=== PATIENT | female | born 1990 | race Caucasian/White ===

== ENCOUNTER 2017-07-14 05:50 | Inpatient (IN) | payer SELFPAY ==
[2017-07-14] VITALS (11 sets, daily range): BP systolic 95–141; BP diastolic 50–84; PULSE 115–132; RESP 13–25; TEMP 97.6–99.1; O2SAT 96–100
[~2017-07-14] VITALS: Ht 170.2 cm; Wt 93.4 kg
[2017-07-14] MEDS ORDERED: SODIUM CHLOR 0.9% 1000 ML INJ 1,000 ML IV ONE ×3 (06:04→06:34)
[2017-07-14] MEDS ORDERED: ONDANSETRON HCL 4 MG/2 ML VIAL IV PUSH ONE ×2 (06:15→08:45)
[2017-07-14] MEDS ORDERED: SODIUM CHLORIDE 0.9% FLUSH 10 ML FLUSH IVF PRN (06:15)
--- NOTE | 2017-07-14 06:16 | PD ---
HPI Chief Complaint: GI Complaint Time Seen by Provider: 06:01 Travel History International Travel<30 days: No Contact w/Intl Traveler<30days: No Traveled to known affect area: No History of Present Illness HPI 26-year-old female arrives vomiting. She reports a history of diabetes insulin- dependent. Vomiting started last night. No unusual suspicious foods. No fever. No abdominal pain. Onset sudden. Timing continuous. No modifying factor. Location endocrine. [facility] Past Medical History Diabetes: Yes (TYPE 1) Patient Takes Glucophage: No Diminished Hearing: No ?: Not Past Surgical History Other Surgery: Yes (L WRIST X2) Social History Alcohol Use: Yes Tobacco Use: No Substance Use: No Allergies-Medications (Allergen,Severity, Reaction): Coded Allergies: No Known Allergies (Unverified , 07/14/17) Review of Systems Except as stated in HPI: all other systems reviewed are Neg General / Constitutional: No: Fever HENT: No: Headaches, Rhinitis Physical Exam Narrative GENERAL: 26-year-old female pleasant well-nourished well-developed Vital Signs Date Time Temp Pulse Resp B/P (MAP) Pulse Ox O2 Delivery O2 Flow Rate FiO2 07/14/17 06:09 97.6 125 16 125/84 (98) 100 SKIN: Warm and dry. HEAD: Atraumatic. Normocephalic. EYES: Pupils equal and round. No scleral icterus. No injection or drainage. ENT: No nasal bleeding or discharge. Mucous membranes pink and moist. NECK: Trachea midline. No JVD. CARDIOVASCULAR: tachycardia. regular rhythm. RESPIRATORY: No accessory muscle use. Clear to auscultation. Breath sounds equal bilaterally. GASTROINTESTINAL: Abdomen soft, non-tender, nondistended. Hepatic and splenic margins not palpable. MUSCULOSKELETAL: Extremities without clubbing, cyanosis, or edema. No obvious deformities. NEUROLOGICAL: Awake and alert. No obvious cranial nerve deficits. Motor grossly within normal limits. Five out of 5 muscle strength in the arms and legs. Normal speech. PSYCHIATRIC: Appropriate mood and affect; insight and judgment normal. Data Data Last Documented VS Vital Signs Date Time Temp Pulse Resp B/P (MAP) Pulse Ox O2 Delivery O2 Flow Rate FiO2 07/14/17 06:16 100 07/14/17 06:09 97.6 125 16 Orders Orders Complete Blood Count With Diff (07/14/17 06:04) Comprehensive Metabolic Panel (07/14/17 06:04) Magnesium (Mg) (07/14/17 06:04) Phosphorus (Po4) (07/14/17 06:04) Beta Hydroxybutyrate (Acetone) (07/14/17 06:04) Urinalysis - C+S If Indicated (07/14/17 06:04) Blood Glucose (07/14/17 06:04) Blood Glucose (07/14/17 07:04) Blood Glucose (07/14/17 06:04) Ecg Monitoring (07/14/17 06:04) Iv Access Insert/Monitor (07/14/17 06:04) Oximetry (07/14/17 06:04) NPO (07/14/17 06:04) Sodium Chlor 0.9% 1000 Ml Inj (Ns 1000 M (07/14/17 06:04) Sodium Chlor 0.9% 1000 Ml Inj (Ns 1000 M (07/14/17 06:34) Sodium Chloride 0.9% Flush (Ns Flush) (07/14/17 06:15) Sodium Chlor 0.9% 1000 Ml Inj (Ns 1000 M (07/14/17 06:04) Lipase (07/14/17 06:04) Ondansetron Inj (Zofran Inj) (07/14/17 06:15) Blood Gas Venous (Vbg) (07/14/17 06:25) Labs Laboratory Tests Test 07/14/17 06:15 07/14/17 06:30 White Blood Count 20.7 TH/MM3 Red Blood Count 5.28 MIL/MM3 Hemoglobin 16.0 GM/DL Hematocrit 48.6 % Mean Corpuscular Volume 92.1 FL Mean Corpuscular Hemoglobin 30.3 PG Mean Corpuscular Hemoglobin Concent 32.9 % Red Cell Distribution Width 13.7 % Platelet Count 337 TH/MM3 Mean Platelet Volume 10.2 FL Neutrophils (%) (Auto) 79.2 % Lymphocytes (%) (Auto) 17.5 % Monocytes (%) (Auto) 2.7 % Eosinophils (%) (Auto) 0.1 % Basophils (%) (Auto) 0.5 % Neutrophils # (Auto) 16.4 TH/MM3 Lymphocytes # (Auto) 3.6 TH/MM3 Monocytes # (Auto) 0.6 TH/MM3 Eosinophils # (Auto) 0.0 TH/MM3 Basophils # (Auto) 0.1 TH/MM3 CBC Comment DIFF FINAL Differential Comment Blood Urea Nitrogen 8 MG/DL Creatinine 1.03 MG/DL Random Glucose 301 MG/DL Albumin 4.3 GM/DL Calcium Level 9.1 MG/DL Phosphorus Level 3.6 MG/DL Magnesium Level 1.6 MG/DL Aspartate Amino Transf (AST/SGOT) 107 U/L Alanine Aminotransferase (ALT/SGPT) 113 U/L Sodium Level 138 MEQ/L Potassium Level 3.8 MEQ/L Chloride Level 100 MEQ/L Carbon Dioxide Level 12.5 MEQ/L Anion Gap 26 MEQ/L Estimat Glomerular Filtration Rate 66 ML/MIN Lipase 46 U/L Blood Gas Puncture Site IV Blood Gas Patient Temperature 98.6 Venous Blood pH 7.16 Venous Blood Partial Pressure CO2 27 mmHg Venous Blood Partial Pressure O2 62 mmHg Venous Blood HCO3 9 mmol/L Venous Blood Oxygen Saturation 80 % Venous Blood Oxygen Content 16.1 Vol % Venous Blood Base Excess -17.8 mmol/L Oxygen Delivery Device ROOM AIR Blood Gas Inspired Oxygen 21 % MDM Medical Decision Making Medical Screen Exam Complete: Yes Emergency Medical Condition: Yes Medical Record Reviewed: Yes Differential Diagnosis dka, hyperglycemia, UTI Narrative Course CBC & BMP Diagram 07/14/17 06:15 Albumin 4.3, Calcium Level 9.1, Phosphorus Level 3.6, Magnesium Level 1.6, Aspartate Amino Transf (AST/SGOT) 107 H, Alanine Aminotransferase (ALT/SGPT) 113 H Anion gap is 26 Lipase is 46 VB. BE -17.8 The patient has received approximately 1 L of saline heart rate is about 110 at 6:50 AM. Vomiting has stopped. The patient speaking full sentences. Patient reports drinking alcohol last night about 3-4 drinks. Patient will be admitted for management of DKA. Critical Care Narrative Aggregate critical care time was 32 minutes. Time to perform other separately billable procedures was not included in the critical care time. My time did not include minutes spent treating any other patients simultaneously or on activities that did not directly contribute to the patient's treatment. The services I provided to this patient were to treat and/or prevent clinically significant deterioration that could result in: Electrolyte imbalance, diabetic coma I provided critical care services requiring my management, as noted below: Chart data review, documentation time, medication orders and management, vital sign assessments/reviewing monitor data, ordering and reviewing lab tests, ordering and interpreting/reviewing x-rays and diagnostic studies, care of the patient and discussion of the patient with the admitting physicians. Diagnosis Primary Impression: DKA (diabetic ketoacidoses) Qualified Codes: E10.10 - Type 1 diabetes mellitus with ketoacidosis without coma Admitting Information Admitting Physician Requests: it Randy Pruitt MD Jul 14, 2017 06:16
[2017-07-14 06:33] LABS: AUTOMATED NEUTROPHIL # 16.4 TH/MM3 (1.8-7.7); BASOPHIL # 0.1 TH/MM3 (0-0.2); BASOPHIL % 0.5 % (0.0-2.0); EOSINOPHIL % 0.1 % (0.0-4.0); HEMATOCRIT 48.6 % (35.0-46.0); LYMPH % 17.5 % (9.0-44.0); LYMPHOCYTE # 3.6 TH/MM3 (1.0-4.8); MEAN CELL VOLUME 92.1 FL (80.0-100.0); MEAN CORPUSCULAR HEMOGLOBIN 30.3 PG (27.0-34.0); MEAN CORPUSCULAR HGB CONC 32.9 % (32.0-36.0); MEAN PLATELET VOLUME 10.2 FL (7.0-11.0); MONO % 2.7 % (0.0-8.0); MONOCYTE # 0.6 TH/MM3 (0-0.9); NEUT % 79.2 % (16.0-70.0); PLATELET COUNT 337 TH/MM3 (150-450); RED BLOOD COUNT 5.28 MIL/MM3 (4.00-5.30); RED CELL DISTRIBUTION WIDTH 13.7 % (11.6-17.2); WHITE BLOOD COUNT 20.7 TH/MM3 (4.0-11.0)
[2017-07-14 06:46] LABS: ALBUMIN 4.3 GM/DL (3.4-5.0); ALT (GPT) 113 U/L (10-53); AST (GOT) 107 U/L (15-37); BICARBONATE 12.5 MEQ/L (21.0-32.0); BLOOD UREA NITROGEN 8 MG/DL (7-18); CALCIUM 9.1 MG/DL (8.5-10.1); CHLORIDE 100 MEQ/L (98-107); CREATININE 1.03 MG/DL (0.50-1.00); GLOMERULAR FILTRATION RATE 66 ML/MIN (>89); GLUCOSE,RANDOM 301 MG/DL (74-106); MAGNESIUM 1.6 MG/DL (1.5-2.5); PHOSPHORUS 3.6 MG/DL (2.5-4.9); SODIUM (NA) 138 MEQ/L (136-145)
[2017-07-14 06:55] LABS: ALKALINE PHOSPHATASE 106 U/L (45-117); TOTAL BILIRUBIN ADULT 0.4 MG/DL (0.2-1.0); TOTAL PROTEIN 8.7 GM/DL (6.4-8.2)
[2017-07-14 07:24] LABS: BILIRUBIN, URINE NEG (NEG); BLOOD, URINE NEG (NEG); GLUCOSE,URINE 1000 mg/dL (NEG); HYALINE CAST, URINE 3 /lpf (RARE); KETONE, URINE 150 mg/dL (NEG); MUCUS URINE FEW /lpf (OCC); NITRITE,URINE NEG (NEG); PH, URINE 5.5 (5.0-8.5); SQUAMOUS EPITHELIAL CELL URINE <1 /hpf (0-5); URINE COLOR LIGHT-YELLOW (YELLW/STRAW); URINE LEUKOCYTE ESTERASE NEG (NEG)
[2017-07-14] MEDS ORDERED: INSULIN HUMAN REGULAR 1,000 UNITS/10 ML VIAL IV PUSH ONE ×2 (08:45→10:00)
[2017-07-14] MEDS ORDERED: SODIUM PHOSPHATE INJ 15 MMOL in SODIUM CHLORIDE 0.9% INJ 100 ML IV PRN (08:45)
[2017-07-14] MEDS ORDERED: POTASSIUM CHLOR 40 MEQ PREMIX 100 ML IV PRN ×2 (08:45)
[2017-07-14] MEDS ORDERED: POTASSIUM CHLOR 20 MEQ PREMIX 100 ML IV PRN ×6 (08:45)
[2017-07-14] MEDS ORDERED: SODIUM BICARBONATE 8.4% SOLN 50 MEQ/50 ML VIAL IV PUSH PRN ×2 (08:45)
--- NOTE | 2017-07-14 08:51 | PD ---
Physical Exam Date Seen by Provider: Jul 14, 2017 Time Seen by Provider: 08:50 Narrative The patient is a 26-year-old female who was initially evaluated by the previous physician, Dr. Pruitt. Please refer to the initial history, physical, diagnostic evaluation, treatment modality plan. Data Data Last Documented VS Vital Signs Date Time Temp Pulse Resp B/P (MAP) Pulse Ox O2 Delivery O2 Flow Rate FiO2 07/14/17 06:16 100 07/14/17 06:09 97.6 125 16 Orders Orders Complete Blood Count With Diff (07/14/17 06:04) Comprehensive Metabolic Panel (07/14/17 06:04) Magnesium (Mg) (07/14/17 06:04) Phosphorus (Po4) (07/14/17 06:04) Beta Hydroxybutyrate (Acetone) (07/14/17 06:04) Urinalysis - C+S If Indicated (07/14/17 06:04) Blood Glucose (07/14/17 06:04) Blood Glucose (07/14/17 07:04) Blood Glucose (07/14/17 06:04) Ecg Monitoring (07/14/17 06:04) Iv Access Insert/Monitor (07/14/17 06:04) Oximetry (07/14/17 06:04) NPO (07/14/17 06:04) Sodium Chlor 0.9% 1000 Ml Inj (Ns 1000 M (07/14/17 06:04) Sodium Chlor 0.9% 1000 Ml Inj (Ns 1000 M (07/14/17 06:34) Sodium Chloride 0.9% Flush (Ns Flush) (07/14/17 06:15) Sodium Chlor 0.9% 1000 Ml Inj (Ns 1000 M (07/14/17 06:04) Lipase (07/14/17 06:04) Ondansetron Inj (Zofran Inj) (07/14/17 06:15) Blood Gas Venous (Vbg) (07/14/17 06:25) Admit Order (Ed Use Only) (07/14/17 07:01) Labs Laboratory Tests Test 07/14/17 06:15 07/14/17 06:30 07/14/17 06:40 White Blood Count 20.7 TH/MM3 Red Blood Count 5.28 MIL/MM3 Hemoglobin 16.0 GM/DL Hematocrit 48.6 % Mean Corpuscular Volume 92.1 FL Mean Corpuscular Hemoglobin 30.3 PG Mean Corpuscular Hemoglobin Concent 32.9 % Red Cell Distribution Width 13.7 % Platelet Count 337 TH/MM3 Mean Platelet Volume 10.2 FL Neutrophils (%) (Auto) 79.2 % Lymphocytes (%) (Auto) 17.5 % Monocytes (%) (Auto) 2.7 % Eosinophils (%) (Auto) 0.1 % Basophils (%) (Auto) 0.5 % Neutrophils # (Auto) 16.4 TH/MM3 Lymphocytes # (Auto) 3.6 TH/MM3 Monocytes # (Auto) 0.6 TH/MM3 Eosinophils # (Auto) 0.0 TH/MM3 Basophils # (Auto) 0.1 TH/MM3 CBC Comment DIFF FINAL Differential Comment Blood Urea Nitrogen 8 MG/DL Creatinine 1.03 MG/DL Random Glucose 301 MG/DL Total Protein 8.7 GM/DL Albumin 4.3 GM/DL Calcium Level 9.1 MG/DL Phosphorus Level 3.6 MG/DL Magnesium Level 1.6 MG/DL Alkaline Phosphatase 106 U/L Aspartate Amino Transf (AST/SGOT) 107 U/L Alanine Aminotransferase (ALT/SGPT) 113 U/L Total Bilirubin 0.4 MG/DL Sodium Level 138 MEQ/L Potassium Level 3.8 MEQ/L Chloride Level 100 MEQ/L Carbon Dioxide Level 12.5 MEQ/L Anion Gap 26 MEQ/L Estimat Glomerular Filtration Rate 66 ML/MIN Lipase 46 U/L B-Hydroxybutyrate 6.09 MMOL/L Blood Gas Puncture Site IV Blood Gas Patient Temperature 98.6 Venous Blood pH 7.16 Venous Blood Partial Pressure CO2 27 mmHg Venous Blood Partial Pressure O2 62 mmHg Venous Blood HCO3 9 mmol/L Venous Blood Oxygen Saturation 80 % Venous Blood Oxygen Content 16.1 Vol % Venous Blood Base Excess -17.8 mmol/L Oxygen Delivery Device ROOM AIR Blood Gas Inspired Oxygen 21 % Urine Color LIGHT-YELLOW Urine Turbidity CLEAR Urine pH 5.5 Urine Specific [place] 1.018 Urine Protein TRACE mg/dL Urine Glucose (UA) 1000 mg/dL Urine Ketones 150 mg/dL Urine Occult Blood NEG Urine Nitrite NEG Urine Bilirubin NEG Urine Urobilinogen LESS THAN 2.0 MG/DL Urine Leukocyte Esterase NEG Urine Squamous Epithelial Cells <1 /hpf Urine Hyaline Casts 3 /lpf Urine Mucus FEW /lpf Microscopic Urinalysis Comment CULT NOT INDICATED MDM Medical Record Reviewed: Yes Supervised Visit with PERCY: No Interpretation(s) Laboratory Tests Test 07/14/17 06:15 07/14/17 06:30 07/14/17 06:40 White Blood Count 20.7 TH/MM3 Red Blood Count 5.28 MIL/MM3 Hemoglobin 16.0 GM/DL Hematocrit 48.6 % Mean Corpuscular Volume 92.1 FL Mean Corpuscular Hemoglobin 30.3 PG Mean Corpuscular Hemoglobin Concent 32.9 % Red Cell Distribution Width 13.7 % Platelet Count 337 TH/MM3 Mean Platelet Volume 10.2 FL Neutrophils (%) (Auto) 79.2 % Lymphocytes (%) (Auto) 17.5 % Monocytes (%) (Auto) 2.7 % Eosinophils (%) (Auto) 0.1 % Basophils (%) (Auto) 0.5 % Neutrophils # (Auto) 16.4 TH/MM3 Lymphocytes # (Auto) 3.6 TH/MM3 Monocytes # (Auto) 0.6 TH/MM3 Eosinophils # (Auto) 0.0 TH/MM3 Basophils # (Auto) 0.1 TH/MM3 CBC Comment DIFF FINAL Differential Comment Blood Urea Nitrogen 8 MG/DL Creatinine 1.03 MG/DL Random Glucose 301 MG/DL Total Protein 8.7 GM/DL Albumin 4.3 GM/DL Calcium Level 9.1 MG/DL Phosphorus Level 3.6 MG/DL Magnesium Level 1.6 MG/DL Alkaline Phosphatase 106 U/L Aspartate Amino Transf (AST/SGOT) 107 U/L Alanine Aminotransferase (ALT/SGPT) 113 U/L Total Bilirubin 0.4 MG/DL Sodium Level 138 MEQ/L Potassium Level 3.8 MEQ/L Chloride Level 100 MEQ/L Carbon Dioxide Level 12.5 MEQ/L Anion Gap 26 MEQ/L Estimat Glomerular Filtration Rate 66 ML/MIN Lipase 46 U/L B-Hydroxybutyrate 6.09 MMOL/L Blood Gas Puncture Site IV Blood Gas Patient Temperature 98.6 Venous Blood pH 7.16 Venous Blood Partial Pressure CO2 27 mmHg Venous Blood Partial Pressure O2 62 mmHg Venous Blood HCO3 9 mmol/L Venous Blood Oxygen Saturation 80 % Venous Blood Oxygen Content 16.1 Vol % Venous Blood Base Excess -17.8 mmol/L Oxygen Delivery Device ROOM AIR Blood Gas Inspired Oxygen 21 % Urine Color LIGHT-YELLOW Urine Turbidity CLEAR Urine pH 5.5 Urine Specific [place] 1.018 Urine Protein TRACE mg/dL Urine Glucose (UA) 1000 mg/dL Urine Ketones 150 mg/dL Urine Occult Blood NEG Urine Nitrite NEG Urine Bilirubin NEG Urine Urobilinogen LESS THAN 2.0 MG/DL Urine Leukocyte Esterase NEG Urine Squamous Epithelial Cells <1 /hpf Urine Hyaline Casts 3 /lpf Urine Mucus FEW /lpf Microscopic Urinalysis Comment CULT NOT INDICATED Differential Diagnosis Differential diagnosis includes DKA, hyperosmolar metabolic acidosis, dehydration, electrolyte abnormality, hyperglycemia, UTI. Narrative Course The patient was initially evaluated by the previous physician, Dr. Pruitt. Please refer to the initial history, physical, diagnostic evaluation, and treatment modality plan. The patient was initially admitted to the medical service and medical floor, however, the patient did have an anion gap 26, bicarb of VBG of 9, bicarb of 12 on BMP, with elevated beta hydroxy. The patient was tachycardic in the 120s-130s, continue to have vomiting. Therefore , I discussed the patient with the on-call basic sciences dean, Dr. Pedroza. He request repeat BMP and VBG. The patient was placed on an insulin drip, but no insulin bolus was administered as the patient's blood glucose was 286. The patient did receive 3 L of normal saline by the previous physician. The patient will be admitted to the intensive care unit. The patient's normal insulin regimen is 35 units of Lantus at night and vein sliding scale insulin with NovoLog based on carb counting. The patient does not have a local assistant scientist, recently moved to the local area from [place]. She also takes estradiol and spironolactone. Physician Communication Physician Communication I discussed the patient with Dr. Pedroza who agrees with admission. Diagnosis Primary Impression: DKA (diabetic ketoacidoses) Qualified Codes: E10.10 - Type 1 diabetes mellitus with ketoacidosis without coma Admitting Information Admitting Physician Requests: Admit Condition: Serious George Macdonald MD Jul 14, 2017 08:51
[2017-07-14] MEDS ORDERED: NOVOINJ3 SQ (08:52)
[2017-07-14] MEDS ORDERED: LANTUS2P SQ (08:52)
[2017-07-14] MEDS ORDERED: SPIR100T PO (08:52)
[2017-07-14] MEDS ORDERED: ESTR2TAB PO (08:52)
[2017-07-14] MEDS ORDERED: CHLORHEXIDINE GLUCONATE 2 % 1 PACK (2 CLOTHS) TOP PRN (09:15)
[2017-07-14] MEDS ORDERED: MISCELLANEOUS NURSING INFORMATION XX SCH (09:15)
--- NOTE | 2017-07-14 09:37 | RADRPT ---
EXAM DATE/TIME: 07/14/2017 09:17 [facility] COMPARISON: No previous studies available for comparison. INDICATIONS : Shortness of breath and Leukocytosis. MEDICAL HISTORY : None. SURGICAL HISTORY : None. ENCOUNTER: Initial ACUITY: 2 days PAIN SCORE: 0/10 LOCATION: chest FINDINGS: A single view of the chest demonstrates the lungs to be symmetrically aerated without evidence of mas s, infiltrate or effusion. The cardiomediastinal contours are unremarkable. Osseous structures are intact. CONCLUSION: No acute disease. Jeff Llamas MD FACR on July 14, 2017 at 9:35 Board Certified Radiologist. This report was verified electronically.
[2017-07-14 09:38] LABS: BICARBONATE 6.9 MEQ/L (21.0-32.0); CALCIUM 7.7 MG/DL (8.5-10.1); CREATININE 0.89 MG/DL (0.50-1.00)
--- NOTE | 2017-07-14 09:58 | RADRPT ---
EXAM DATE/TIME: 07/14/2017 09:33 [facility] COMPARISON: No previous studies available for comparison. INDICATIONS : Increased lab values. MEDICAL HISTORY : Diabetes mellitus type 1. SURGICAL HISTORY : Left wrist surgery x2. ENCOUNTER: Initial ACUITY: 1 day PAIN SCORE: 6/10 LOCATION: Bilateral upper quadrant MEASUREMENTS: LIVER: 16.4 cm length COMMON DUCT: 7 mm RIGHT KIDNEY: 10.8 x 6.2 x 5.7 cm SPLEEN: 12.2 cm length FINDINGS: LIVER: Mild increased echogenicity in the liver. COMMON DUCT: No intraluminal mass or stone visualized. GALLBLADDER: Mildly prominent common duct PANCREAS: The visualized portions are within normal limits. RIGHT KIDNEY: No hydronephrosis, stone or mass. SPLEEN: Mildly prominent spleen CONCLUSION: Mild prominence of the common duct without gallstones. Mild increased echogenicity to the liver. Jeff Llamas MD FACR on July 14, 2017 at 9:55 Board Certified Radiologist. This report was verified electronically.
[2017-07-14 10:30] LABS: AUTOMATED NEUTROPHIL # 22.7 TH/MM3 (1.8-7.7); BASOPHIL # 0.1 TH/MM3 (0-0.2); BASOPHIL % 0.2 % (0.0-2.0); HEMATOCRIT 45.5 % (35.0-46.0); HEMOGLOBIN 14.5 GM/DL (11.6-15.3); LYMPH % 5.2 % (9.0-44.0); LYMPHOCYTE # 1.3 TH/MM3 (1.0-4.8); MEAN CELL VOLUME 95.7 FL (80.0-100.0); MEAN CORPUSCULAR HEMOGLOBIN 30.6 PG (27.0-34.0); MEAN CORPUSCULAR HGB CONC 31.9 % (32.0-36.0); MEAN PLATELET VOLUME 10.3 FL (7.0-11.0); MONO % 5.5 % (0.0-8.0); MONOCYTE # 1.4 TH/MM3 (0-0.9); NEUT % 89.1 % (16.0-70.0); PLATELET COUNT 319 TH/MM3 (150-450); RED BLOOD COUNT 4.76 MIL/MM3 (4.00-5.30); RED CELL DISTRIBUTION WIDTH 13.9 % (11.6-17.2); WHITE BLOOD COUNT 25.5 TH/MM3 (4.0-11.0)
--- NOTE | 2017-07-14 10:38 | MH ---
cc: Janine Rosado MD DATE OF ADMISSION: 07/14/2017 HISTORY OF PRESENT ILLNESS: The patient is a 26-year-old female with type 1 diabetes mellitus diagnosed at age 17, on insulin, and history of anxiety disorder and depression, who presented to the ED early this morning with intractable nausea, vomiting and abdominal pain. She also reports polyuria and polydipsia. On arrival to the ED, she was tachycardic and tachypneic. Her laboratory data was significant for DKA. The patient had anion gap of 26. Beta hydroxybutyrate 6.09 and a venous blood gas showed a severe metabolic acidosis with a pH of 7.04 and a bicarbonate of 6. She was initially admitted to the medical floor under hospitalist service per Dr. Pruitt; however, after discussion with Dr. Macdonald, the patient needed to be admitted to the ICU for insulin drip and DKA management. She was given 3 liters of crystalloids overnight and about to go on insulin drip. A chest x-ray in the ED showed no acute disease. She denies any coughing, fever, chills or any constitutional symptoms. She was admitted for DKA about 1 year ago. She recently moved from [place]. PAST MEDICAL HISTORY: Significant for type 1 diabetes mellitus, anxiety and depression. PAST SURGICAL HISTORY: A previous left wrist surgery. ALLERGIES: NO KNOWN DRUG ALLERGIES. FAMILY HISTORY: Diabetes mellitus and hypertension runs in the family. MEDICATIONS AT HOME: Include insulin, spironolactone and estradiol. SOCIAL HISTORY: Nonsmoker, active drinker where she drinks 4-5 drinks of vodka daily. REVIEW OF SYSTEMS: As per HPI. Rest of review of systems is unremarkable. PHYSICAL EXAMINATION: GENERAL: A 26-year-old renal lying in bed in no acute respiratory distress. VITAL SIGNS: Temperature 97.6, pulse 120s, respiratory rate 20, blood pressure 108/53, saturation 100% on 2 liter oxygen. HEENT: Atraumatic, normocephalic. Pupils are equal, round, reactive to light and accommodation. Extraocular muscles intact. Conjunctivae pink. Nonicteric sclerae. Oral mucosa dry mucous membranes. NECK: Supple. No JVD, adenopathy, or thyromegaly. Trachea in the midline. HEART: Tachycardic. Normal S1, S2, no murmurs, rubs or gallops noted. PULMONARY: Bilateral air entry. No rales or wheezing. ABDOMEN: Soft, nontender. No distention. Positive bowel sounds. EXTREMITIES: No cyanosis, clubbing, or edema. NEUROLOGIC: No focal sensory deficit. LABORATORY DATA: Repeat labs from 9:00 a.m. showed a sodium 138, potassium 5.3, chloride 107, CO2 of 6.9, bicarbonate 26.9, anion gap 24, blood sugar is 315. WBC 20.7, hemoglobin 16, hematocrit 48, platelet count of 337. Beta hydroxybutyrate 6.09. Urinalysis positive for glucose and ketones; negative for leukocyte esterase and nitrite. LFTs showed total bilirubin 0.4, AST 107, ALT 113, alkaline phosphatase 106. RADIOGRAPHIC STUDIES: Chest x-ray showed no acute disease. IMPRESSION: 1. Diabetic ketoacidosis. 2. Anion gap metabolic acidosis. 3. Elevated liver enzymes. 4. Leukocytosis, likely stress related. 5. Alcohol abuse. 6. Obesity. RECOMMENDATIONS: 1. Monitor neuro status closely and watch for signs of withdrawals. She drinks of vodka 4 to 5 drinks on a daily basis. Placed on thiamine, multivitamins and folic acid. 2. Oxygen p.r.n. to maintain sats above 92%. 3. Bronchodilators on a p.r.n. basis. 4. Monitor heart rate and blood pressure closely and maintain MAP greater than 65 mmHg. 5. Monitor renal function, I's and O's and electrolyte replacement per protocol. She was given 3 liters of crystalloids in the ED. We will place on NS at 250 mL an hour per DKA protocol and once blood sugar falls less than 250, we will switch to D5 NS at 200 an hour. 6. Check BMP, mag, phos q.6 hours and beta hydroxybutyrate q.12 hours. 7. Keep n.p.o. for now and place on Pepcid for gastrointestinal prophylaxis. 8. Monitor LFTs and we will obtain an ultrasound of the liver. 9. I will hold off on antibiotics at this time as there is no evidence of any infectious process. The chest x-ray in the ED showed no evidence of any acute disease and urinalysis negative for UTI. We will culture, if spikes a fever. 10. We will place on insulin drip per DKA protocol and monitor electrolytes closely as stated above. 11. Monitor CBC. 12. Gastrointestinal prophylaxis with Pepcid and DVT prophylaxis with SCDs and heparin subq. 13. Further recommendations will be based on hospital course. MD JONAS Gamboa/ALTHEA , 09:58 AM , 10:36 AM
[2017-07-14 10:46] LABS: AST (GOT) 181 U/L (15-37); BICARBONATE 6.1 MEQ/L (21.0-32.0); BLOOD UREA NITROGEN 8 MG/DL (7-18); CALCIUM 8.4 MG/DL (8.5-10.1); CHLORIDE 104 MEQ/L (98-107); CREATININE 0.94 MG/DL (0.50-1.00); GLOMERULAR FILTRATION RATE 73 ML/MIN (>89); GLUCOSE,RANDOM 347 MG/DL (74-106); MAGNESIUM 1.4 MG/DL (1.5-2.5); SODIUM (NA) 136 MEQ/L (136-145)
[2017-07-14 10:48] LABS: ALT (GPT) 132 U/L (10-53)
[2017-07-14 10:50] LABS: ALKALINE PHOSPHATASE 99 U/L (45-117); TOTAL BILIRUBIN ADULT 0.3 MG/DL (0.2-1.0); TOTAL PROTEIN 8.2 GM/DL (6.4-8.2)
[2017-07-14] MEDS: MULTIVITAMIN TAB PO SCH (10:50)
[2017-07-14] MEDS: THIAMINE HCL 100 MG TAB PO SCH (10:50)
[2017-07-14] MEDS: FOLIC ACID 1 MG TAB PO SCH (10:50)
[2017-07-14] MEDS: SODIUM CHLOR 0.9% 1000 ML INJ 1,000 ML IV SCH ×3 (11:03→20:45)
[2017-07-14] MEDS: INSULIN REGULAR (IV INFUSION) 100 UNITS in SODIUM CHLORIDE 0.9% INJ 99 ML IV PRN ×2 (11:05→22:19)
[2017-07-14] MEDS ORDERED: ALPRAZolam 0.25 MG TAB PO ONE ×2 (15:00→21:30)
[2017-07-14] MEDS: DEXT 5%-NACL 0.9% 1000 ML INJ 1,000 ML IV SCH ×2 (15:01→19:45)
[2017-07-14] MEDS ORDERED: DIATRIZOATE MEGLUM/DIATRIZOATE SOD 9 ML CUP ONE (15:14)
[2017-07-14] MEDS ORDERED: DIATRIZOATE MEGLUM/DIATRIZOATE SOD 9 ML CUP PO ONE (15:30)
[2017-07-14 15:53] LABS: BICARBONATE 7.9 MEQ/L (21.0-32.0); CALCIUM 7.3 MG/DL (8.5-10.1); CREATININE 0.86 MG/DL (0.50-1.00); MAGNESIUM 1.6 MG/DL (1.5-2.5); PHOSPHORUS 2.4 MG/DL (2.5-4.9)
[2017-07-14 16:14] LABS: TOTAL PROTEIN 7.5 GM/DL (6.4-8.2)
[2017-07-14 16:17] LABS: CALCIUM-PROTEIN CORRECTED 7.2 MG/DL (8.5-10.1)
[2017-07-14] MEDS ORDERED: IOHEXOL 350 MG/ML 10 ML VIAL (for RAD DIAG) IVCONTRAST ONE (17:00)
--- NOTE | 2017-07-14 17:24 | RADRPT ---
EXAM DATE/TIME: 07/14/2017 17:02 [facility] COMPARISON: No previous studies available for comparison. INDICATIONS : Patient complains of vomiting, no abdominal pain. IV CONTRAST: 97 cc Omnipaque 350 (iohexol) IV ORAL CONTRAST: Prescribed oral contrast ingested. RADIATION DOSE: 7.77 CTDIvol (mGy) MEDICAL HISTORY : Diabetes mellitus type 1. SURGICAL HISTORY : None. ENCOUNTER: Initial ACUITY: 1 day PAIN SCALE: 0/10 LOCATION: abdomen TECHNIQUE: Volumetric scanning of the abdomen and pelvis was performed. Using automated exposure control and ad justment of the mA and/or kV according to patient size, radiation dose was kept as low as reasonably achievable to obtain optimal diagnostic quality images. DICOM format image data is available electro nically for review and comparison. FINDINGS: LOWER LUNGS: The visualized lower lungs are clear. LIVER: Diffusely diminished hepatic attenuation suggestive of steatosis. No evidence of focal mass or biliar y ductal dilatation. SPLEEN: Normal size without lesion. PANCREAS: Within normal limits. KIDNEYS: Normal in size and shape. There is no mass, stone or hydronephrosis. ADRENAL GLANDS: Within normal limits. VASCULAR: There is no aortic aneurysm. BOWEL/MESENTERY: Mild fluid distention of the stomach. Small bowel, and colon demonstrate no acute abnormality. There is no free intraperitoneal air or fluid. ABDOMINAL WALL: Within normal limits. RETROPERITONEUM: There is no lymphadenopathy. BLADDER: No wall thickening or mass. REPRODUCTIVE: Within normal limits. INGUINAL: There is no lymphadenopathy or hernia. MUSCULOSKELETAL: Within normal limits for patient age. CONCLUSION: Prominent hepatic steatosis. Distended stomach. Brendan Leigh MD on July 14, 2017 at 17:14 Board Certified Radiologist. This report was verified electronically.
[2017-07-14] MEDS: CHLORHEXIDINE GLUCONATE 2 % 1 PACK (2 CLOTHS) TOP SCH (19:44)
[2017-07-14] MEDS: FAMOTIDINE 20 MG/2 ML VIAL IV PUSH SCH (19:56)
[2017-07-14] MEDS ORDERED: traMADol HCL 50 MG TAB PO PRN (21:30)
[2017-07-14 22:53] LABS: BLOOD UREA NITROGEN 5 MG/DL (7-18); CALCIUM 7.8 MG/DL (8.5-10.1); CHLORIDE 110 MEQ/L (98-107); CREATININE 0.89 MG/DL (0.50-1.00); GLOMERULAR FILTRATION RATE 78 ML/MIN (>89); GLUCOSE,RANDOM 181 MG/DL (74-106); MAGNESIUM 1.4 MG/DL (1.5-2.5); PHOSPHORUS 1.3 MG/DL (2.5-4.9); SODIUM (NA) 137 MEQ/L (136-145)
[2017-07-14] MEDS: MAGNESIUM SULFATE 1 GM PREMIX 100 ML IV SCH (23:54)
[2017-07-15] VITALS (18 sets, daily range): BP systolic 115–148; BP diastolic 58–88; PULSE 87–119; RESP 8–42; TEMP 98–99.2; O2SAT 94–99
[2017-07-15] MEDS: DEXT 5%-NACL 0.9% 1000 ML INJ 1,000 ML IV SCH ×3 (00:14→10:50)
[2017-07-15] MEDS: SODIUM CHLOR 0.9% 1000 ML INJ 1,000 ML IV SCH ×5 (00:25→21:07)
[2017-07-15] MEDS ORDERED: POTASSIUM PHOSPHATE INJ 30 MMOL in SODIUM CHLOR 0.9% 250 ML INJ 250 ML IV ONE (00:30)
[2017-07-15] MEDS: MAGNESIUM SULFATE 1 GM PREMIX 100 ML IV SCH (00:51)
[2017-07-15 04:42] LABS: BICARBONATE 17.7 MEQ/L (21.0-32.0); CALCIUM 7.5 MG/DL (8.5-10.1); CREATININE 0.72 MG/DL (0.50-1.00); MAGNESIUM 2.2 MG/DL (1.5-2.5); PHOSPHORUS 2.2 MG/DL (2.5-4.9)
--- NOTE | 2017-07-15 07:25 | HHI.CCPN ---
Subjective Remarks/Hospital Course Patient is a 26-year-old female with type 1 diabetes mellitus diagnosed at age 17, on insulin, and history of anxiety disorder and depression, who presented to the ED early this morning with intractable nausea, vomiting and abdominal pain. She also reports polyuria and polydipsia. On arrival to the ED, she was tachycardic and tachypneic. Her laboratory data was significant for DKA. The patient had anion gap of 26. Beta hydroxybutyrate 6.09 and a venous blood gas showed a severe metabolic acidosis with a pH of 7.04 and a bicarbonate of 6. She was initially admitted to the medical floor under hospitalist service per Dr. Pruitt; however, after discussion with Dr. Macdonald, the patient needed to be admitted to the ICU for insulin drip and DKA management. She was given 3 liters of crystalloids overnight and about to go on insulin drip. A chest x-ray in the ED showed no acute disease. She denies any coughing, fever, chills or any constitutional symptoms. She was admitted for DKA about 1 year ago. She recently moved from [place]. 07/15 Patient remains on insulin drip 2.5/hr, AG closed this morning (9). CT abdomen/pelvis yesterday showed hepatic steatosis. Afebrile. Objective Vital Signs Date Time Temp Pulse Resp B/P (MAP) Pulse Ox O2 Delivery O2 Flow Rate FiO2 07/15/17 06:00 103 07/15/17 04:00 98.7 8 118/58 (78) 96 07/14/17 17:30 Nasal Cannula 2.00 Intake and Output 07/15/17 07/15/17 07/16/17 08:00 16:00 00:00 Intake Total 2560 ml Output Total 1000 ml Balance 1560 ml Result Diagram: 07/14/17 1004 07/15/17 0334 Other Results Laboratory Tests Test 07/14/17 08:54 07/14/17 09:00 07/14/17 10:04 07/14/17 12:00 Blood Gas Puncture Site Blood Gas Patient Temperature 98.6 Venous Blood pH 7.04 Venous Blood Partial Pressure CO2 24 mmHg Venous Blood Partial Pressure O2 56 mmHg Venous Blood HCO3 6 mmol/L Venous Blood Oxygen Saturation 73 % Venous Blood Oxygen Content 14.1 Vol % Venous Blood Base Excess -22.3 mmol/L Blood Gas Inspired Oxygen 21 % Blood Urea Nitrogen 7 MG/DL 8 MG/DL Creatinine 0.89 MG/DL 0.94 MG/DL Random Glucose 315 MG/DL 347 MG/DL Calcium Level 7.7 MG/DL 8.4 MG/DL Sodium Level 138 MEQ/L 136 MEQ/L Potassium Level 5.3 MEQ/L 5.5 MEQ/L 4.9 MEQ/L Chloride Level 107 MEQ/L 104 MEQ/L Carbon Dioxide Level 6.9 MEQ/L 6.1 MEQ/L Anion Gap 24 MEQ/L 26 MEQ/L Estimat Glomerular Filtration Rate 78 ML/MIN 73 ML/MIN White Blood Count 25.5 TH/MM3 Red Blood Count 4.76 MIL/MM3 Hemoglobin 14.5 GM/DL Hematocrit 45.5 % Mean Corpuscular Volume 95.7 FL Mean Corpuscular Hemoglobin 30.6 PG Mean Corpuscular Hemoglobin Concent 31.9 % Red Cell Distribution Width 13.9 % Platelet Count 319 TH/MM3 Mean Platelet Volume 10.3 FL Neutrophils (%) (Auto) 89.1 % Lymphocytes (%) (Auto) 5.2 % Monocytes (%) (Auto) 5.5 % Eosinophils (%) (Auto) 0.0 % Basophils (%) (Auto) 0.2 % Neutrophils # (Auto) 22.7 TH/MM3 Lymphocytes # (Auto) 1.3 TH/MM3 Monocytes # (Auto) 1.4 TH/MM3 Eosinophils # (Auto) 0.0 TH/MM3 Basophils # (Auto) 0.1 TH/MM3 CBC Comment DIFF FINAL Differential Comment Total Protein 8.2 GM/DL Albumin 4.0 GM/DL Phosphorus Level 4.0 MG/DL Magnesium Level 1.4 MG/DL Alkaline Phosphatase 99 U/L Aspartate Amino Transf (AST/SGOT) 181 U/L Alanine Aminotransferase (ALT/SGPT) 132 U/L Total Bilirubin 0.3 MG/DL Test 07/14/17 15:00 07/14/17 19:35 07/14/17 22:05 07/15/17 03:34 Blood Urea Nitrogen 7 MG/DL 5 MG/DL 4 MG/DL Creatinine 0.86 MG/DL 0.89 MG/DL 0.72 MG/DL Random Glucose 165 MG/DL 181 MG/DL 165 MG/DL Total Protein 7.5 GM/DL Calcium Level 7.3 MG/DL 7.8 MG/DL 7.5 MG/DL Phosphorus Level 2.4 MG/DL 1.3 MG/DL 2.2 MG/DL Magnesium Level 1.6 MG/DL 1.4 MG/DL 2.2 MG/DL Sodium Level 139 MEQ/L 137 MEQ/L 140 MEQ/L Potassium Level 4.9 MEQ/L 3.6 MEQ/L 4.2 MEQ/L Chloride Level 111 MEQ/L 110 MEQ/L 113 MEQ/L Carbon Dioxide Level 7.9 MEQ/L 16.0 MEQ/L 17.7 MEQ/L Anion Gap 20 MEQ/L 11 MEQ/L 9 MEQ/L Estimat Glomerular Filtration Rate 81 ML/MIN 78 ML/MIN 100 ML/MIN Protein Corrected Calcium 7.2 MG/DL Nasal Screen MRSA (PCR) MRSA NOT DETECTED B-Hydroxybutyrate 1.25 MMOL/L Imaging Last Impressions Liver Ultrasound 07/14/17 0000 Signed Impressions: Service Date/Time: Friday, July 14, 2017 09:33 - CONCLUSION: Mild prominence of the common duct without gallstones. Mild increased echogenicity to the liver. Jeff Llamas MD FACR Chest X-Ray 07/14/17 0000 Signed Impressions: Service Date/Time: Friday, July 14, 2017 09:17 - CONCLUSION: No acute disease. Jeff Llamas MD FACR Abdomen/Pelvis CT 07/14/17 0000 Signed Impressions: Service Date/Time: Friday, July 14, 2017 17:02 - CONCLUSION: Prominent hepatic steatosis. Distended stomach. Brendan Leigh MD Objective Remarks GENERAL: Patient is 26 yo lying in bed in NAD SKIN: Warm and dry. HEAD: Normocephalic. EYES: No scleral icterus. No injection or drainage. NECK: Supple, trachea midline. No JVD or lymphadenopathy. CARDIOVASCULAR: Regular rate and rhythm without murmurs, gallops, or rubs. RESPIRATORY: Breath sounds equal bilaterally. No accessory muscle use. GASTROINTESTINAL: Abdomen soft, non-tender, nondistended. MUSCULOSKELETAL: No cyanosis, or edema. Neuro: Awake and alert A/P Assessment and Plan 1. DKA ( resolved) 2. AG metabolic acidosis (resolved) 3. Elevated liver enzymes. 4. Leukocytosis, 5. Alcohol abuse. 6. Obesity. Plan Neuro: Monitor neuro status closely and watch for signs of withdrawals. She drinks of vodka 4 to 5 drinks on a daily basis. Continue thiamine, multivitamins and folic acid. Pulm: Continue Oxygen maintain sats above 92%. Bronchodilators on a p.r.n. basis. CV : Monitor HR and BP and maintain MAP> 65 mmHg. : Monitor renal function, I's and O's and electrolyte replacement per protocol. Continue IVF GI: On Pepcid for GI prophylaxis. Monitor LFTs, check Hep profile US Liver: Mild prominence of the common duct without gallstones. Mild increased echogenicity to the liver. CT abd/pelvis: Prominent hepatic steatosis. Distended stomach. Start PO diabetic diet ID: Monitor for signs of infections ( Fever, WBC) CXR in ED showed no evidence of any acute disease and urinalysis is negative for UTI. CT abd/pelvis: No acute findings Endo: Will transition insulin drip to SSI with Levemir. AG closed (9) beta hydroxybutyrate (0.80 from 6.0) Heme: Monitor CBC. GI prophylaxis with Pepcid and DVT prophylaxis with SCDs and heparin subq. Will sign off and transfer care to [facility] Level 2 Janine Rosado MD Jul 15, 2017 07:25
[2017-07-15] MEDS: MULTIVITAMIN TAB PO SCH (08:02)
[2017-07-15] MEDS: THIAMINE HCL 100 MG TAB PO SCH (08:02)
[2017-07-15] MEDS: FAMOTIDINE 20 MG/2 ML VIAL IV PUSH SCH ×2 (08:02→19:25)
[2017-07-15] MEDS: FOLIC ACID 1 MG TAB PO SCH (08:02)
[2017-07-15 09:59] LABS: AUTOMATED NEUTROPHIL # 6.7 TH/MM3 (1.8-7.7); BASOPHIL % 0.2 % (0.0-2.0); EOSINOPHIL % 0.2 % (0.0-4.0); HEMATOCRIT 37.9 % (35.0-46.0); HEMOGLOBIN 12.8 GM/DL (11.6-15.3); LYMPH % 16.1 % (9.0-44.0); LYMPHOCYTE # 1.4 TH/MM3 (1.0-4.8); MEAN CELL VOLUME 90.6 FL (80.0-100.0); MEAN CORPUSCULAR HEMOGLOBIN 30.6 PG (27.0-34.0); MEAN CORPUSCULAR HGB CONC 33.7 % (32.0-36.0); MEAN PLATELET VOLUME 9.4 FL (7.0-11.0); MONO % 6.9 % (0.0-8.0); MONOCYTE # 0.6 TH/MM3 (0-0.9); NEUT % 76.6 % (16.0-70.0); PLATELET COUNT 178 TH/MM3 (150-450); RED BLOOD COUNT 4.18 MIL/MM3 (4.00-5.30); RED CELL DISTRIBUTION WIDTH 13.4 % (11.6-17.2); WHITE BLOOD COUNT 8.8 TH/MM3 (4.0-11.0)
[2017-07-15 10:34] LABS: ALBUMIN 2.7 GM/DL (3.4-5.0); CALCIUM 7.4 MG/DL (8.5-10.1); CREATININE 0.83 MG/DL (0.50-1.00); DIRECT BILIRUBIN ADULT 0.1 MG/DL (0.0-0.2); INDIRECT BILIRUBIN 0.3 MG/DL (0.0-0.8); PHOSPHORUS 1.2 MG/DL (2.5-4.9); TOTAL BILIRUBIN ADULT 0.4 MG/DL (0.2-1.0)
[2017-07-15] MEDS ORDERED: POTASSIUM PHOSPHATE MONOBASIC 500 MG TAB PO PRN (11:00)
[2017-07-15] MEDS ORDERED: MAGNESIUM OXIDE 400 MG TAB PO PRN (11:00)
[2017-07-15] MEDS: INSULIN DETEMIR 100 UNITS/ML VIAL SQ SCH ×2 (11:00→19:26)
[2017-07-15] MEDS ORDERED: POTASSIUM PHOSPHATE MONOBASIC 500 MG TAB PO/TUBE PRN (11:00)
[2017-07-15] MEDS ORDERED: MAGNESIUM SULFATE INJ 2 GM in SODIUM CHLORIDE 0.9% INJ 96 ML IV PRN (11:00)
[2017-07-15] MEDS ORDERED: MAGNESIUM SULFATE INJ 4 GM in SODIUM CHLORIDE 0.9% INJ 92 ML IV PRN (11:00)
[2017-07-15] MEDS ORDERED: SODIUM PHOSPHATE INJ 30 MMOL in SODIUM CHLOR 0.9% 250 ML INJ 240 ML IV PRN (11:00)
[2017-07-15] MEDS ORDERED: POTASSIUM CHLOR 20 MEQ PREMIX 100 ML IV PRN ×2 (11:00)
[2017-07-15] MEDS ORDERED: POTASSIUM PHOSPHATE INJ 30 MMOL in SODIUM CHLOR 0.9% 250 ML INJ 250 ML IV PRN (11:00)
[2017-07-15] MEDS ORDERED: POTASSIUM CHLORIDE 25 MEQ EFFERVESCENT TAB PO PRN (11:00)
[2017-07-15] MEDS ORDERED: POTASSIUM CHLOR 40 MEQ PREMIX 100 ML IV PRN ×2 (11:00)
[2017-07-15] MEDS ORDERED: GLUCAGON 1 MG/ML VIAL OTHER PRN (12:00)
[2017-07-15] MEDS: INSULIN NovoLIN REGULAR SUPPLEMENTAL SCALE SQ SCH ×3 (12:00→19:25)
[2017-07-15] MEDS ORDERED: DEXTROSE 50% IN WATER 50 ML VIAL(D50) IV PUSH PRN (12:00)
[2017-07-15 14:30] LABS: HEMOGLOBIN A1C 9.3 % (4.3-6.0)
[2017-07-16] VITALS (14 sets, daily range): BP systolic 131–157; BP diastolic 74–86; PULSE 90–104; RESP 15–24; TEMP 98.6–99.7; O2SAT 93–98
[2017-07-16] MEDS: CHLORHEXIDINE GLUCONATE 2 % 1 PACK (2 CLOTHS) TOP SCH (00:05)
[2017-07-16] MEDS: INSULIN NovoLIN REGULAR SUPPLEMENTAL SCALE SQ SCH ×3 (00:05→08:00)
[2017-07-16 06:47] LABS: AUTOMATED NEUTROPHIL # 7.4 TH/MM3 (1.8-7.7); BASOPHIL % 0.2 % (0.0-2.0); EOSINOPHIL % 0.3 % (0.0-4.0); HEMATOCRIT 37.2 % (35.0-46.0); HEMOGLOBIN 12.9 GM/DL (11.6-15.3); LYMPH % 13.4 % (9.0-44.0); LYMPHOCYTE # 1.3 TH/MM3 (1.0-4.8); MEAN CELL VOLUME 89.3 FL (80.0-100.0); MEAN CORPUSCULAR HEMOGLOBIN 31.1 PG (27.0-34.0); MEAN CORPUSCULAR HGB CONC 34.8 % (32.0-36.0); MEAN PLATELET VOLUME 9.3 FL (7.0-11.0); MONO % 7.8 % (0.0-8.0); MONOCYTE # 0.7 TH/MM3 (0-0.9); NEUT % 78.3 % (16.0-70.0); PLATELET COUNT 144 TH/MM3 (150-450); RED BLOOD COUNT 4.16 MIL/MM3 (4.00-5.30); RED CELL DISTRIBUTION WIDTH 13.3 % (11.6-17.2); WHITE BLOOD COUNT 9.5 TH/MM3 (4.0-11.0)
[2017-07-16 07:12] LABS: ALBUMIN 2.6 GM/DL (3.4-5.0); ALT (GPT) 53 U/L (10-53); AST (GOT) 32 U/L (15-37); BICARBONATE 23.4 MEQ/L (21.0-32.0); BLOOD UREA NITROGEN 3 MG/DL (7-18); CALCIUM 7.6 MG/DL (8.5-10.1); CHLORIDE 108 MEQ/L (98-107); GLOMERULAR FILTRATION RATE 152 ML/MIN (>89); GLUCOSE,RANDOM 154 MG/DL (74-106); MAGNESIUM 1.7 MG/DL (1.5-2.5); SODIUM (NA) 139 MEQ/L (136-145)
[2017-07-16 07:15] LABS: ALKALINE PHOSPHATASE 71 U/L (45-117); PHOSPHORUS 1.5 MG/DL (2.5-4.9); TOTAL BILIRUBIN ADULT 0.7 MG/DL (0.2-1.0)
[2017-07-16] MEDS: MULTIVITAMIN TAB PO SCH (08:31)
[2017-07-16] MEDS: FAMOTIDINE 20 MG/2 ML VIAL IV PUSH SCH (08:31)
[2017-07-16] MEDS: THIAMINE HCL 100 MG TAB PO SCH (08:31)
[2017-07-16] MEDS: FOLIC ACID 1 MG TAB PO SCH (08:31)
[2017-07-16] MEDS: INSULIN DETEMIR 100 UNITS/ML VIAL SQ SCH (08:32)
[2017-07-16] MEDS ORDERED: SPIRONOLACTONE 100 MG TAB PO SCH (09:00)
[2017-07-16] MEDS ORDERED: POTASSIUM CHLORIDE 20 MEQ CONTROLLED RELEASE TAB PO ONE (09:30)
[2017-07-16] MEDS ORDERED: POTASSIUM CHLORIDE 10 MEQ CONTROLLED RELEASE TAB PO ONE (09:45)
--- NOTE | 2017-07-16 09:46 | HHI.PR ---
Subjective Remarks Follow-up DKA. Patient run out of Levemir prior to admission.. She is doing okay no complaints. Diabetic education provided. Discussed with nursing, will discharge patient after 4 PM fingerstick Objective Vitals Vital Signs Date Time Temp Pulse Resp B/P (MAP) Pulse Ox O2 Delivery O2 Flow Rate FiO2 07/16/17 09:00 93 20 154/86 (108) 97 07/16/17 08:00 99.0 97 15 146/83 (104) 98 07/16/17 08:00 96 07/16/17 07:00 98 17 131/75 (93) 94 07/16/17 06:00 97 07/16/17 04:00 102 07/16/17 04:00 99.7 102 21 150/85 (106) 94 07/16/17 02:00 100 07/16/17 00:00 98.8 102 18 143/74 (97) 96 07/16/17 00:00 99 07/15/17 22:00 103 07/15/17 20:00 105 07/15/17 20:00 99.2 105 23 140/81 (100) 96 07/15/17 18:00 105 07/15/17 18:00 105 42 148/88 (108) 98 07/15/17 17:00 112 23 140/76 (97) 98 07/15/17 16:00 98 07/15/17 16:00 98.7 98 21 140/81 (100) 97 07/15/17 15:00 105 26 132/69 (90) 95 07/15/17 14:00 106 07/15/17 14:00 106 20 120/73 (89) 94 07/15/17 13:00 104 19 119/69 (86) 96 07/15/17 12:00 98.0 99 23 128/77 (94) 98 07/15/17 12:00 99 07/15/17 11:00 105 21 128/72 (90) 99 07/15/17 10:00 101 17 126/74 (91) 98 07/15/17 10:00 101 I/O 07/15/17 07/15/17 07/15/17 07/16/17 07/16/17 07/16/17 07:00 15:00 23:00 07:00 15:00 23:00 Intake Total 2560 ml 1131.1 ml 2613 ml 240 ml Output Total 1000 ml 1300 ml Balance 1560 ml 1131.1 ml 2613 ml -1060 ml Intake Oral 0 ml 750 ml 240 ml IV Total 2560 ml 1131.1 ml 1863 ml Output Urine Total 1000 ml 1300 ml # Voids 2 # Bowel Movements 0 0 Result Diagram: 07/16/17 0600 07/16/17 0600 Imaging Last Impressions Liver Ultrasound 07/14/17 0000 Signed Impressions: Service Date/Time: Friday, July 14, 2017 09:33 - CONCLUSION: Mild prominence of the common duct without gallstones. Mild increased echogenicity to the liver. Jeff Llamas MD FACR Chest X-Ray 07/14/17 0000 Signed Impressions: Service Date/Time: Friday, July 14, 2017 09:17 - CONCLUSION: No acute disease. Jeff Llamas MD FACR Abdomen/Pelvis CT 07/14/17 0000 Signed Impressions: Service Date/Time: Friday, July 14, 2017 17:02 - CONCLUSION: Prominent hepatic steatosis. Distended stomach. Brendan Leigh MD Objective Remarks GENERAL: Patient is 26 yo lying in bed in NAD. Obese SKIN: Warm and dry. HEAD: Normocephalic. EYES: No scleral icterus. No injection or drainage. NECK: Supple, trachea midline. No JVD or lymphadenopathy. CARDIOVASCULAR: Regular rate and rhythm without murmurs, gallops, or rubs. RESPIRATORY: Breath sounds equal bilaterally. No accessory muscle use. GASTROINTESTINAL: Abdomen soft, non-tender, nondistended. MUSCULOSKELETAL: No cyanosis, or edema. Neuro: Awake and alert Procedures none A/P Problem List: (1) DKA (diabetic ketoacidoses) ICD Code: E13.10 - Other specified diabetes mellitus with ketoacidosis without coma Status: Acute Assessment and Plan 1. DKA ( resolved). Insulin requiring diabetes mellitus. Continue Levemir with sliding scale coverage. Diabetic education. 2. AG metabolic acidosis (resolved) 3. Elevated liver enzymes. Improved. Ultrasound shows hepatic steatosis. Outpatient follow-up 4. Leukocytosis, improved 5. Alcohol abuse. Counseled. 6. Obesity. Weight reduction GI prophylaxis with Pepcid and DVT prophylaxis with SCDs and heparin subq. Discharge Planning Stable for discharge Problem Qualifiers (1) DKA (diabetic ketoacidoses): Qualified Codes: E10.10 - Type 1 diabetes mellitus with ketoacidosis without coma Ruben Young MD Jul 16, 2017 09:46
[2017-07-16] MEDS ORDERED: LEVEMIR SQ (10:31)
[2017-07-16] MEDS ORDERED: THIA100 PO (10:31)
--- NOTE | 2017-07-16 10:31 | HHI.DCPOC ---
Discharge Care Plan Diagnosis: (1) DKA (diabetic ketoacidoses) Your Health Problems Are: Difficulty with ADL Exercise Tolerance Goals to Promote Your Health * To prevent worsening of your condition and complications * To maintain your health at the optimal level Directions to Meet Your Goals Take your medications as prescribed Follow your dietary instruction Follow activity as directed Keep your appointments as scheduled Take your immunizations and boosters as scheduled If your symptoms worsen call your PCP, if no PCP go to Urgent Care Center or Emergency Room Smoking is Dangerous to Your Health. Avoid second hand smoke Call the 24-hour hour crisis hotline for domestic abuse at Ruben Young MD Jul 16, 2017 10:31
[2017-07-16] MEDS ORDERED: LANCETS1 MI1 (10:34)
[2017-07-16] MEDS ORDERED: BIOM30MI (10:34)
[2017-07-16] MEDS ORDERED: INSU1MIS15 (10:34)
[2017-07-16] MEDS ORDERED: GLUCTES12 (10:34)
[2017-07-16] MEDS ORDERED: GLUCKIT15 (10:34)
[2017-07-16] MEDS: SODIUM CHLOR 0.9% 1000 ML INJ 1,000 ML IV SCH (10:50)
[2017-07-16] MEDS ORDERED: INSULIN NovoLIN REGULAR SUPPLEMENTAL SCALE SQ SCH (12:00)
--- NOTE | 2017-07-16 15:44 | HHI.DS ---
Discharge Summary Admission Date Jul 14, 2017 at 07:02 Discharge Date: Jul 16, 2017 Admitting Diagnosis DKA (1) DKA (diabetic ketoacidoses) ICD Code: E13.10 - Other specified diabetes mellitus with ketoacidosis without coma Diagnosis: Principal Status: Acute Procedures none Brief History - From Admission The patient is a 26-year-old female with type 1 diabetes mellitus diagnosed at age 17, on insulin, and history of anxiety disorder and depression, who presented to the ED early this morning with intractable nausea, vomiting and abdominal pain. She also reports polyuria and polydipsia. CBC/BMP: 07/16/17 0600 07/16/17 0600 Significant Findings Laboratory Tests Test 07/14/17 06:15 07/14/17 06:30 07/14/17 06:40 07/14/17 08:54 White Blood Count 20.7 TH/MM3 (4.0-11.0) Hemoglobin 16.0 GM/DL (11.6-15.3) Hematocrit 48.6 % (35.0-46.0) Neutrophils (%) (Auto) 79.2 % (16.0-70.0) Neutrophils # (Auto) 16.4 TH/MM3 (1.8-7.7) Creatinine 1.03 MG/DL (0.50-1.00) Random Glucose 301 MG/DL (74-106) Total Protein 8.7 GM/DL (6.4-8.2) Aspartate Amino Transf (AST/SGOT) 107 U/L (15-37) Alanine Aminotransferase (ALT/SGPT) 113 U/L (10-53) Carbon Dioxide Level 12.5 MEQ/L (21.0-32.0) Anion Gap 26 MEQ/L (5-15) Estimat Glomerular Filtration Rate 66 ML/MIN (>89) Lipase 46 U/L (73-393) B-Hydroxybutyrate 6.09 MMOL/L (0.00-0.39) Venous Blood pH 7.16 (7.360-7.400) 7.04 (7.360-7.400) Venous Blood Partial Pressure CO2 27 mmHg (44-48) 24 mmHg (44-48) Venous Blood Partial Pressure O2 62 mmHg (35-40) 56 mmHg (35-40) Venous Blood HCO3 9 mmol/L (22-26) 6 mmol/L (22-26) Venous Blood Oxygen Saturation 80 % (70-76) Venous Blood Base Excess -17.8 mmol/L (-2-2) -22.3 mmol/L (-2-2) Urine Glucose (UA) 1000 mg/dL (NEG) Urine Ketones 150 mg/dL (NEG) Urine Mucus FEW /lpf (OCC) Test 07/14/17 09:00 07/14/17 10:04 07/14/17 12:00 07/14/17 15:00 Random Glucose 315 MG/DL (74-106) 347 MG/DL (74-106) 165 MG/DL (74-106) Calcium Level 7.7 MG/DL (8.5-10.1) 8.4 MG/DL (8.5-10.1) 7.3 MG/DL (8.5-10.1) Potassium Level 5.3 MEQ/L (3.5-5.1) 5.5 MEQ/L (3.5-5.1) Carbon Dioxide Level 6.9 MEQ/L (21.0-32.0) 6.1 MEQ/L (21.0-32.0) 7.9 MEQ/L (21.0-32.0) Anion Gap 24 MEQ/L (5-15) 26 MEQ/L (5-15) 20 MEQ/L (5-15) Estimat Glomerular Filtration Rate 78 ML/MIN (>89) 73 ML/MIN (>89) 81 ML/MIN (>89) White Blood Count 25.5 TH/MM3 (4.0-11.0) Mean Corpuscular Hemoglobin Concent 31.9 % (32.0-36.0) Neutrophils (%) (Auto) 89.1 % (16.0-70.0) Lymphocytes (%) (Auto) 5.2 % (9.0-44.0) Neutrophils # (Auto) 22.7 TH/MM3 (1.8-7.7) Monocytes # (Auto) 1.4 TH/MM3 (0-0.9) Magnesium Level 1.4 MG/DL (1.5-2.5) Aspartate Amino Transf (AST/SGOT) 181 U/L (15-37) Alanine Aminotransferase (ALT/SGPT) 132 U/L (10-53) Phosphorus Level 2.4 MG/DL (2.5-4.9) Chloride Level 111 MEQ/L (98-107) Protein Corrected Calcium 7.2 MG/DL (8.5-10.1) Test 07/14/17 19:35 07/14/17 22:05 07/15/17 03:34 07/15/17 08:25 Blood Urea Nitrogen 5 MG/DL (7-18) 4 MG/DL (7-18) Random Glucose 181 MG/DL (74-106) 165 MG/DL (74-106) Calcium Level 7.8 MG/DL (8.5-10.1) 7.5 MG/DL (8.5-10.1) Phosphorus Level 1.3 MG/DL (2.5-4.9) 2.2 MG/DL (2.5-4.9) Magnesium Level 1.4 MG/DL (1.5-2.5) Chloride Level 110 MEQ/L (98-107) 113 MEQ/L (98-107) Carbon Dioxide Level 16.0 MEQ/L (21.0-32.0) 17.7 MEQ/L (21.0-32.0) Estimat Glomerular Filtration Rate 78 ML/MIN (>89) Hemoglobin A1c 9.3 % (4.3-6.0) B-Hydroxybutyrate 1.25 MMOL/L (0.00-0.39) Blood Gas HCO3 15 mmol/L (22-26) Blood Gas Base Excess -9.1 mmol/L (-2-2) Arterial Blood pH 7.35 (7.380-7.420) Arterial Blood Partial Pressure CO2 29 mmHg (38-42) Test 07/15/17 09:30 07/16/17 06:00 Neutrophils (%) (Auto) 76.6 % (16.0-70.0) 78.3 % (16.0-70.0) Blood Urea Nitrogen 3 MG/DL (7-18) 3 MG/DL (7-18) Random Glucose 209 MG/DL (74-106) 154 MG/DL (74-106) Total Protein 6.0 GM/DL (6.4-8.2) 6.0 GM/DL (6.4-8.2) Calcium Level 7.4 MG/DL (8.5-10.1) 7.6 MG/DL (8.5-10.1) Phosphorus Level 1.2 MG/DL (2.5-4.9) 1.5 MG/DL (2.5-4.9) Chloride Level 111 MEQ/L (98-107) 108 MEQ/L (98-107) Carbon Dioxide Level 19.0 MEQ/L (21.0-32.0) Estimat Glomerular Filtration Rate 84 ML/MIN (>89) Protein Corrected Calcium 8.0 MG/DL (8.5-10.1) Aspartate Amino Transf (AST/SGOT) 49 U/L (15-37) Alanine Aminotransferase (ALT/SGPT) 71 U/L (10-53) Albumin 2.7 GM/DL (3.4-5.0) 2.6 GM/DL (3.4-5.0) B-Hydroxybutyrate 0.80 MMOL/L (0.00-0.39) 1.02 MMOL/L (0.00-0.39) Platelet Count 144 TH/MM3 (150-450) Potassium Level 3.3 MEQ/L (3.5-5.1) Imaging Last Impressions Liver Ultrasound 07/14/17 0000 Signed Impressions: Service Date/Time: Friday, July 14, 2017 09:33 - CONCLUSION: Mild prominence of the common duct without gallstones. Mild increased echogenicity to the liver. Jeff Llamas MD FACR Chest X-Ray 07/14/17 0000 Signed Impressions: Service Date/Time: Friday, July 14, 2017 09:17 - CONCLUSION: No acute disease. Jeff Llamas MD FACR Abdomen/Pelvis CT 07/14/17 0000 Signed Impressions: Service Date/Time: Friday, July 14, 2017 17:02 - CONCLUSION: Prominent hepatic steatosis. Distended stomach. Brendan Leigh MD PE at Discharge GENERAL: Patient is 26 yo lying in bed in NAD. Obese SKIN: Warm and dry. HEAD: Normocephalic. EYES: No scleral icterus. No injection or drainage. NECK: Supple, trachea midline. No JVD or lymphadenopathy. CARDIOVASCULAR: Regular rate and rhythm without murmurs, gallops, or rubs. RESPIRATORY: Breath sounds equal bilaterally. No accessory muscle use. GASTROINTESTINAL: Abdomen soft, non-tender, nondistended. MUSCULOSKELETAL: No cyanosis, or edema. Neuro: Awake and alert Hospital Course 1. DKA ( resolved). Insulin requiring diabetes mellitus. Continue Levemir with sliding scale coverage. Diabetic education. 2. AG metabolic acidosis (resolved) 3. Elevated liver enzymes. Improved. Ultrasound shows hepatic steatosis. Outpatient follow-up 4. Leukocytosis, improved 5. Alcohol abuse. Counseled. 6. Obesity. Weight reduction GI prophylaxis with Pepcid and DVT prophylaxis with SCDs and heparin subq. Pt Condition on Discharge: Stable Discharge Disposition: Discharge Home Discharge Time: > 30 minutes Discharge Instructions DIET: Follow Instructions for: Heart Healthy Diet, Diabetic Diet Activities you can perform: Regular-No Restrictions Activities to Avoid: Driving Follow up Referrals: PCP Follow-up - 1 Week New Medications: Blood Glucose Monitoring W/Device (Glucocom Blood Glucose Mo W/Device) 1 Kit Kit KIT .XX DIRECTED for Blood Sugar Management, #1 Glucocom Test Strips (Glucocom Test Strips) 1 Suzanna Suzanna EA .XX DIRECTED for Blood Sugar Management, #1 Insulin Syringe/U-100/31G X 5/16" 1 ml (Insulin Syringe/U-100/31G X 5/16" 1 ml) 31 Gauge X 5/16" Mis EA .XX DIRECTED for Blood Sugar Management, #1 0 Refills Lancets (Lancets) 1 Mis Mis EA .XX DIRECTED for Blood Sugar Management, #1 0 Refills Parenteral Therapy Supplies (Sharpsafety Sharps Contai) 1 Mis Mis EA .XX DIRECTED, #1 0 Refills Insulin Detemir Inj (Levemir Inj) 1,000 unit/ 10 ML Vial 35 UNITS SQ Q12HR for Blood Sugar Management, #60 INJECTION Do not mix with any other Insulin. Thiamine HCl (Gnp Vitamin B-1) 100 Mg Tab 100 MG PO DAILY for Alcohol Detox, #30 TAB Continued Medications: Estradiol (Estradiol) 2 Mg Tab 4 MG PO DAILY for Estrogen Supplements, #30 TAB 0 Refills Insulin Aspart Inj (Novolog Flexpen Inj) 300 Unit/3 Ml Pen 1 UNITS SQ ACHS for Blood Sugar Management, #1 PEN 0 Refills Spironolactone (Spironolactone) 100 Mg Tab 200 MG PO DAILY, #30 TAB 0 Refills Ruben Young MD Jul 16, 2017 15:44
[2017-07-16] MEDS ORDERED: NOVOINJ3 SQ (17:14)
== END 2017-07-16 17:19 | disposition home or self-care (01) | DRG 639 ==
LOC: NEPC 05:50 → NEDA 07:02 → NEDH 13:43 → HIMW 19:15
PROVIDERS: ADMIT Internal Medicine; ATTEND Internal Medicine
DX: E10.10 Type 1 diabetes mellitus with ketoacidosis without coma (principal); K76.0 Fatty (change of) liver, not elsewhere classified; R00.0 Tachycardia, unspecified; Z79.4 Long term (current) use of insulin; Z83.3 Family history of diabetes mellitus; Z82.49 Family history of ischemic heart disease and other diseases of the circulatory system; F41.9 Anxiety disorder, unspecified; F32.9 Major depressive disorder, single episode, unspecified; F10.10 Alcohol abuse, uncomplicated; E66.9 Obesity, unspecified; Z68.32 Body mass index [BMI] 32.0-32.9, adult; D72.829 Elevated white blood cell count, unspecified
CPT/HCPCS: 36600; 71045; 74177; 76705; 80048; 80053; 80074; 80076; 81001; 82010; 82805; 82948; 83036; 83690; 83735; 84100; 84132; 84155; 85025; 87641; 96361; 96374; J1815; J1817; J2405; J3475; J3480; J7030; J7042; J7050; Q9963; Q9967

== ENCOUNTER 2017-12-01 16:03 | Inpatient (IN) ==
[2017-12-01] MEDS ORDERED: Sod Chloride 0.9% Inj 1,000 ML IV.SIG ONE (16:32)
[2017-12-01 17:06] LABS: Baso % (Auto) 0.1 % (0.0-2.0); Hematocrit 45.2 % (35.0-46.0); Hemoglobin 14.9 gm/dL (11.6-15.3); Lymph # (Auto) 0.8 th/mm3 (1.0-4.8); Lymph % (Auto) 6.1 % (9.0-44.0); Mean Corpuscular HGB Conc 32.9 % (32.0-36.0); Mean Corpuscular Hemoglobin 29.4 pg (27.0-34.0); Mean Corpuscular Volume 89.4 fL (80.0-100.0); Mean Platelet Volume 9.6 fL (7.0-11.0); Mono # (Auto) 0.2 th/mm3 (0.0-0.9); Mono % (Auto) 1.8 % (0.0-8.0); Neut # (Auto) 12.5 th/mm3 (1.8-7.7); Platelet Count 297 th/mm3 (150-450); Red Blood Count 5.06 mil/mm3 (4.00-5.30); Red Cell Distribution Width 12.6 % (11.6-17.2); White Blood Count 13.5 th/mm3 (4.0-11.0)
[2017-12-01 17:36] LABS: Alanine Aminotransferase 29 U/L (10-53); Albumin 4.3 g/dL (3.4-5.0); Anion Gap 24 meq/L (5-15); Aspartate Aminotransferase 25 U/L (15-37); Blood Urea Nitrogen 9 mg/dL (7-18); Calcium 8.9 mg/dL (8.5-10.1); Carbon Dioxide 8.6 meq/L (21.0-32.0); Chloride 101 meq/L (98-107); Glomerular Filtration Rate 78 mL/min (>89); Glucose,Random 186 mg/dL (74-106); Potassium 4.2 meq/L (3.5-5.1); Sodium 134 meq/L (136-145)
[2017-12-01 17:38] LABS: Bilirubin,Urine Negative (Negative); Clarity,Urine Clear (Clear); Color,Urine Straw (Yellw/Straw); Glucose,Urine (UA) 500 or Greater mg/dL (Negative); Hyaline Casts,Urine 1 /lpf (0-3); Leukocyte Esterase,Urine Negative (Negative); Mucus,Urine Few /lpf (Occasional); Nitrite,Urine Negative (Negative)
[2017-12-01 17:44] LABS: Alkaline Phosphatase 84 U/L (45-117); Total Protein 8.6 g/dL (6.4-8.2)
[2017-12-01] MEDS ORDERED: Sod Chloride 0.9% Inj 1,000 ML IV.SIG SCH (18:00)
[2017-12-01 18:23] LABS: VBG Base Excess -16.9 mmol/L (-2-2); VBG Blood Gas Oxygen Content 13.2 Vol % (9.0-17.0); VBG PCO2 23 mmHG (44-48); VBG PH 7.23 (7.360-7.400); VBG PO2 39 mmHG (35-40)
[2017-12-01] MEDS ORDERED: Sodium Phosphate Inj 15 MMOL in Sodium Chlor 0.9% Inj 100 ML IV.SIG PRN (18:28)
[2017-12-01] MEDS ORDERED: Insulin Regular (For Infusion) 100 UNIT in Sodium Chlor 0.9% Inj 99 ML IV.CONT PRN (18:28)
[2017-12-01] MEDS ORDERED: Potassium Chlor 20 mEq Premix 20 MEQ/100 ML PIGGYBACK IV.SIG PRN ×5 (18:28)
[2017-12-01] MEDS ORDERED: Potassium Chlor 40 mEq Premix 40 MEQ/100 ML PIGGYBACK IV.SIG PRN ×2 (18:28)
--- NOTE | 2017-12-01 18:59 | ED ---
HPI General Chief complaint: Medical Clearance Stated complaint: Going into DKA Time Seen by Provider: 12/01/17 16:33 History of Present Illness HPI narrative: Patient is a 27-year-old female history of diabetes, took some insulin this morning about 10 units, she states she was not feeling well this morning when she woke up and thought she might be in DKA. Mild nausea, feels like her heart is racing. She states she has been in euglycemic DKA in the past. States symptoms are moderate, associated signs symptoms in context as above, duration is this morning Related Data Home Medications Medication Instructions Recorded Confirmed Novolin N NPH U-100 Insulin 12/01/17 12/01/17 insulin regular human [Novolin R 12/01/17 Regular U-100 Insuln] Allergies Allergy/AdvReac Type Severity Reaction Status Date / Time No Known Allergies Allergy Unverified 07/14/17 05:53 Review of Systems ROS: all other systems reviewed are negative [facility] Medical History Medical History Diabetes (Acute) Social History Social History Substance History: No History of Abuse Second Hand Smoke Exposure: No Smoking Status: Never smoker How Often Do You Have a Drink Containing Alcohol: Never Recent Travel in [facility] within the Last 8 Weeks: No Recent Out of Country Travel within the Last 8 Weeks: No Immunization History Tetanus Immunization: Unsure Hx Influenza Vaccine This Season: No Exam Narrative Exam Narrative: GENERAL: Well-developed well-nourished, no obvious distress certainly appears nontoxic and quite pleasant. SKIN: Focused skin assessment warm/dry. HEAD: Atraumatic. Normocephalic. EYES: Pupils equal and round. No scleral icterus. No injection or drainage. ENT: No nasal bleeding or discharge. Mucous membranes pink and moist. NECK: Trachea midline. No JVD. CARDIOVASCULAR: Tachycardic with regular rhythm. No murmur appreciated. RESPIRATORY: Tachypneic, probably kusmaul respirations.. Clear to auscultation. Breath sounds equal bilaterally. GASTROINTESTINAL: Abdomen soft, non-tender, nondistended. Hepatic and splenic margins not palpable. MUSCULOSKELETAL: No obvious deformities. No clubbing. No cyanosis. No edema. NEUROLOGICAL: Awake and alert. No obvious cranial nerve deficits. Motor grossly within normal limits. Normal speech. PSYCHIATRIC: Appropriate mood and affect; insight and judgment normal. Course Initial Documented Vital Signs Temperature 97.3 F L 12/01/17 16:15 Pulse Rate 120 H 12/01/17 16:15 Blood Pressure 135/71 12/01/17 16:15 Pulse Oximetry 97 12/01/17 16:15 Last Documented Vital Signs Temperature 98.3 F 12/02/17 04:00 Pulse Rate 85 12/02/17 06:00 Respiratory Rate 16 12/02/17 06:00 Blood Pressure 115/59 L 12/02/17 06:00 Pulse Oximetry 99 12/02/17 06:00 Critical Care Time Critical Care Time: Yes Total Critical Care Time: 35 Attestation: Aggregate critical care time was 35 minutes. Time to perform other separately billable procedures was not included in the critical care time. My time did not include minutes spent treating any other patients simultaneously or on activities that did not directly contribute to the patient's treatment. The services I provided to this patient were to treat and/or prevent clinically significant deterioration that could result in: , disability, organ failure I provided critical care services requiring my management, as noted below: Chart data review, documentation time, medication orders and management, vital sign assessments/reviewing monitor data, ordering and reviewing lab tests, ordering and interpreting/reviewing x-rays and diagnostic studies, care of the patient and discussion of the patient with the admitting physicians. Medical Decision Making MDM Narrative Medical decision making narrative: Patient is a 27-year-old female diabetic presents emergency department for feeling like she has DKA. Patient states that she has had DKA with low blood sugars before. Patient does have evidence of DKA, increased anion gap, ketones in the urine, she does have elevated acetone levels in the blood. She was started on insulin drip and a half rate for her weight at 4 units an hour. 2 L normal saline bolus was given and she will start on a D5 maintenance drip as well. Medical Screen Exam Complete: Yes Emergency Medical Condition: Yes Lab Data Result diagrams: 12/01/17 16:46 12/02/17 05:08 Lab Results 12/01/17 12/01/17 12/01/17 Range/Units 16:18 16:46 16:46 WBC 13.5 H (4.0-11.0) th/mm3 RBC 5.06 (4.00-5.30) mil/mm3 Hgb 14.9 (11.6-15.3) gm/dL Hct 45.2 (35.0-46.0) % MCV 89.4 (80.0-100.0) fL MCH 29.4 (27.0-34.0) pg MCHC 32.9 (32.0-36.0) % RDW 12.6 (11.6-17.2) % Plt Count 297 (150-450) th/mm3 MPV 9.6 (7.0-11.0) fL Neut % (Auto) 92.0 H (16.0-70.0) % Lymph % (Auto) 6.1 L (9.0-44.0) % [place] % (Auto) 1.8 (0.0-8.0) % Eos % (Auto) 0.0 (0.0-4.0) % Baso % (Auto) 0.1 (0.0-2.0) % Neut # (Auto) 12.5 H (1.8-7.7) th/mm3 Lymph # (Auto) 0.8 L (1.0-4.8) th/mm3 [place] # (Auto) 0.2 (0.0-0.9) th/mm3 Eos # (Auto) 0.0 (0.0-0.4) th/mm3 Baso # (Auto) 0.0 (0.0-0.2) th/mm3 WBC Differential . Differential Comment Auto diff final Puncture Site Patient Temperature VBG pH (7.360-7.400) VBG pCO2 (44-48) mmHG VBG pO2 (35-40) mmHG VBG HCO3 (22-26) mmol/L VBG O2 Saturation (70-76) % VBG O2 Content (9.0-17.0) Vol % VBG Base Excess (-2-2) mmol/L VBG Carboxyhemoglobin (0-4) % VBG Methemoglobin (0-2) % Hemoglobin (12.0-16.0) G/DL Inspired O2 % Critical Value Sodium 134 L (136-145) meq/L Potassium 4.2 (3.5-5.1) meq/L Chloride 101 (98-107) meq/L Carbon Dioxide 8.6 L (21.0-32.0) meq/L Anion Gap 24 H (5-15) meq/L BUN 9 (7-18) mg/dL Creatinine 0.88 (0.50-1.00) mg/dL Estimated GFR 78 L (>89) mL/min POC Glucose 176 H (68-110) mg/dl Random Glucose 186 H (74-106) mg/dL Calcium 8.9 (8.5-10.1) mg/dL Phosphorus (2.5-4.9) mg/dL Magnesium (1.5-2.5) mg/dL Total Bilirubin 0.2 (0.2-1.0) mg/dL AST 25 (15-37) U/L ALT 29 (10-53) U/L Alkaline Phosphatase 84 (45-117) U/L Total Protein 8.6 H (6.4-8.2) g/dL Albumin 4.3 (3.4-5.0) g/dL Lipase 55 L (73-393) U/L Beta-Hydroxybutyric Acd (0.00-0.39) mmol/L Beta HCG, Quant Less than 1 (0-5) mIU/mL Urine Color (Yellw/Straw) Urine Clarity (Clear) Urine pH (5.0-8.5) Ur Specific [place] (1.002-1.035) Urine Protein (Neg-Trace) mg/dL Urine Glucose (UA) (Negative) mg/dL Urine Ketones (Negative) mg/dL Urine Occult Blood (Negative) Urine Nitrate (Negative) Urine Bilirubin (Negative) Urine Urobilinogen (Less than 2) mg/dL Ur Leukocyte Esterase (Negative) Urine RBC (0-3) /hpf Urine WBC (0-5) /hpf Hyaline Casts (0-3) /lpf Urine Mucus (Occasional) /lpf Micro UA Comment Ur Microscopic Review Urine Culture Comments Nasal Screen MRSA (PCR) (Negative) 12/01/17 12/01/17 12/01/17 Range/Units 16:46 17:08 18:09 WBC (4.0-11.0) th/mm3 RBC (4.00-5.30) mil/mm3 Hgb (11.6-15.3) gm/dL Hct (35.0-46.0) % MCV (80.0-100.0) fL MCH (27.0-34.0) pg MCHC (32.0-36.0) % RDW (11.6-17.2) % Plt Count (150-450) th/mm3 MPV (7.0-11.0) fL Neut % (Auto) (16.0-70.0) % Lymph % (Auto) (9.0-44.0) % [place] % (Auto) (0.0-8.0) % Eos % (Auto) (0.0-4.0) % Baso % (Auto) (0.0-2.0) % Neut # (Auto) (1.8-7.7) th/mm3 Lymph # (Auto) (1.0-4.8) th/mm3 [place] # (Auto) (0.0-0.9) th/mm3 Eos # (Auto) (0.0-0.4) th/mm3 Baso # (Auto) (0.0-0.2) th/mm3 WBC Differential Differential Comment Puncture Site Line Patient Temperature 98.6 VBG pH 7.23 L* (7.360-7.400) VBG pCO2 23 L (44-48) mmHG VBG pO2 39 (35-40) mmHG VBG HCO3 9 L* (22-26) mmol/L VBG O2 Saturation 66 L (70-76) % VBG O2 Content 13.2 (9.0-17.0) Vol % VBG Base Excess -16.9 L (-2-2) mmol/L VBG Carboxyhemoglobin 0.9 (0-4) % VBG Methemoglobin 1.1 (0-2) % Hemoglobin 14.3 (12.0-16.0) G/DL Inspired O2 21 % Critical Value Yes Sodium (136-145) meq/L Potassium (3.5-5.1) meq/L Chloride (98-107) meq/L Carbon Dioxide (21.0-32.0) meq/L Anion Gap (5-15) meq/L BUN (7-18) mg/dL Creatinine (0.50-1.00) mg/dL Estimated GFR (>89) mL/min POC Glucose (68-110) mg/dl Random Glucose (74-106) mg/dL Calcium (8.5-10.1) mg/dL Phosphorus (2.5-4.9) mg/dL Magnesium (1.5-2.5) mg/dL Total Bilirubin (0.2-1.0) mg/dL AST (15-37) U/L ALT (10-53) U/L Alkaline Phosphatase (45-117) U/L Total Protein (6.4-8.2) g/dL Albumin (3.4-5.0) g/dL Lipase (73-393) U/L Beta-Hydroxybutyric Acd 7.26 H (0.00-0.39) mmol/L Beta HCG, Quant (0-5) mIU/mL Urine Color Straw (Yellw/Straw) Urine Clarity Clear (Clear) Urine pH 5.0 (5.0-8.5) Ur Specific [place] 1.020 (1.002-1.035) Urine Protein 30 H (Neg-Trace) mg/dL Urine Glucose (UA) 500 or greater (Negative) mg/dL Urine Ketones 80 or greater H (Negative) mg/dL Urine Occult Blood Negative (Negative) Urine Nitrate Negative (Negative) Urine Bilirubin Negative (Negative) Urine Urobilinogen Less than 2 (Less than 2) mg/dL Ur Leukocyte Esterase Negative (Negative) Urine RBC Less than 1 (0-3) /hpf Urine WBC Less than 1 (0-5) /hpf Hyaline Casts 1 (0-3) /lpf Urine Mucus Few H (Occasional) /lpf Micro UA Comment Culture not ind Ur Microscopic Review Not Reportable Urine Culture Comments Culture not ind Nasal Screen MRSA (PCR) (Negative) 12/01/17 12/01/17 12/01/17 Range/Units 21:00 21:00 21:33 WBC (4.0-11.0) th/mm3 RBC (4.00-5.30) mil/mm3 Hgb (11.6-15.3) gm/dL Hct (35.0-46.0) % MCV (80.0-100.0) fL MCH (27.0-34.0) pg MCHC (32.0-36.0) % RDW (11.6-17.2) % Plt Count (150-450) th/mm3 MPV (7.0-11.0) fL Neut % (Auto) (16.0-70.0) % Lymph % (Auto) (9.0-44.0) % [place] % (Auto) (0.0-8.0) % Eos % (Auto) (0.0-4.0) % Baso % (Auto) (0.0-2.0) % Neut # (Auto) (1.8-7.7) th/mm3 Lymph # (Auto) (1.0-4.8) th/mm3 [place] # (Auto) (0.0-0.9) th/mm3 Eos # (Auto) (0.0-0.4) th/mm3 Baso # (Auto) (0.0-0.2) th/mm3 WBC Differential Differential Comment Puncture Site Patient Temperature VBG pH (7.360-7.400) VBG pCO2 (44-48) mmHG VBG pO2 (35-40) mmHG VBG HCO3 (22-26) mmol/L VBG O2 Saturation (70-76) % VBG O2 Content (9.0-17.0) Vol % VBG Base Excess (-2-2) mmol/L VBG Carboxyhemoglobin (0-4) % VBG Methemoglobin (0-2) % Hemoglobin (12.0-16.0) G/DL Inspired O2 % Critical Value Sodium (136-145) meq/L Potassium (3.5-5.1) meq/L Chloride (98-107) meq/L Carbon Dioxide (21.0-32.0) meq/L Anion Gap (5-15) meq/L BUN (7-18) mg/dL Creatinine (0.50-1.00) mg/dL Estimated GFR (>89) mL/min POC Glucose 143 H 149 H (68-110) mg/dl Random Glucose (74-106) mg/dL Calcium (8.5-10.1) mg/dL Phosphorus (2.5-4.9) mg/dL Magnesium (1.5-2.5) mg/dL Total Bilirubin (0.2-1.0) mg/dL AST (15-37) U/L ALT (10-53) U/L Alkaline Phosphatase (45-117) U/L Total Protein (6.4-8.2) g/dL Albumin (3.4-5.0) g/dL Lipase (73-393) U/L Beta-Hydroxybutyric Acd (0.00-0.39) mmol/L Beta HCG, Quant (0-5) mIU/mL Urine Color (Yellw/Straw) Urine Clarity (Clear) Urine pH (5.0-8.5) Ur Specific [place] (1.002-1.035) Urine Protein (Neg-Trace) mg/dL Urine Glucose (UA) (Negative) mg/dL Urine Ketones (Negative) mg/dL Urine Occult Blood (Negative) Urine Nitrate (Negative) Urine Bilirubin (Negative) Urine Urobilinogen (Less than 2) mg/dL Ur Leukocyte Esterase (Negative) Urine RBC (0-3) /hpf Urine WBC (0-5) /hpf Hyaline Casts (0-3) /lpf Urine Mucus (Occasional) /lpf Micro UA Comment Ur Microscopic Review Urine Culture Comments Nasal Screen MRSA (PCR) Not detected (Negative) 12/01/17 12/01/17 12/01/17 Range/Units 22:03 23:02 23:09 WBC (4.0-11.0) th/mm3 RBC (4.00-5.30) mil/mm3 Hgb (11.6-15.3) gm/dL Hct (35.0-46.0) % MCV (80.0-100.0) fL MCH (27.0-34.0) pg MCHC (32.0-36.0) % RDW (11.6-17.2) % Plt Count (150-450) th/mm3 MPV (7.0-11.0) fL Neut % (Auto) (16.0-70.0) % Lymph % (Auto) (9.0-44.0) % [place] % (Auto) (0.0-8.0) % Eos % (Auto) (0.0-4.0) % Baso % (Auto) (0.0-2.0) % Neut # (Auto) (1.8-7.7) th/mm3 Lymph # (Auto) (1.0-4.8) th/mm3 [place] # (Auto) (0.0-0.9) th/mm3 Eos # (Auto) (0.0-0.4) th/mm3 Baso # (Auto) (0.0-0.2) th/mm3 WBC Differential Differential Comment Puncture Site Patient Temperature VBG pH (7.360-7.400) VBG pCO2 (44-48) mmHG VBG pO2 (35-40) mmHG VBG HCO3 (22-26) mmol/L VBG O2 Saturation (70-76) % VBG O2 Content (9.0-17.0) Vol % VBG Base Excess (-2-2) mmol/L VBG Carboxyhemoglobin (0-4) % VBG Methemoglobin (0-2) % Hemoglobin (12.0-16.0) G/DL Inspired O2 % Critical Value Sodium 136 (136-145) meq/L Potassium 4.3 (3.5-5.1) meq/L Chloride 105 (98-107) meq/L Carbon Dioxide 11.8 L (21.0-32.0) meq/L Anion Gap 19 H (5-15) meq/L BUN 5 L (7-18) mg/dL Creatinine 0.71 (0.50-1.00) mg/dL Estimated GFR Greater than 89 (>89) mL/min POC Glucose 171 H 203 H (68-110) mg/dl Random Glucose 198 H (74-106) mg/dL Calcium 8.1 L D (8.5-10.1) mg/dL Phosphorus 2.4 L (2.5-4.9) mg/dL Magnesium 1.7 (1.5-2.5) mg/dL Total Bilirubin (0.2-1.0) mg/dL AST (15-37) U/L ALT (10-53) U/L Alkaline Phosphatase (45-117) U/L Total Protein (6.4-8.2) g/dL Albumin (3.4-5.0) g/dL Lipase (73-393) U/L Beta-Hydroxybutyric Acd (0.00-0.39) mmol/L Beta HCG, Quant (0-5) mIU/mL Urine Color (Yellw/Straw) Urine Clarity (Clear) Urine pH (5.0-8.5) Ur Specific [place] (1.002-1.035) Urine Protein (Neg-Trace) mg/dL Urine Glucose (UA) (Negative) mg/dL Urine Ketones (Negative) mg/dL Urine Occult Blood (Negative) Urine Nitrate (Negative) Urine Bilirubin (Negative) Urine Urobilinogen (Less than 2) mg/dL Ur Leukocyte Esterase (Negative) Urine RBC (0-3) /hpf Urine WBC (0-5) /hpf Hyaline Casts (0-3) /lpf Urine Mucus (Occasional) /lpf Micro UA Comment Ur Microscopic Review Urine Culture Comments Nasal Screen MRSA (PCR) (Negative) 12/02/17 12/02/17 12/02/17 Range/Units 00:01 01:04 02:08 WBC (4.0-11.0) th/mm3 RBC (4.00-5.30) mil/mm3 Hgb (11.6-15.3) gm/dL Hct (35.0-46.0) % MCV (80.0-100.0) fL MCH (27.0-34.0) pg MCHC (32.0-36.0) % RDW (11.6-17.2) % Plt Count (150-450) th/mm3 MPV (7.0-11.0) fL Neut % (Auto) (16.0-70.0) % Lymph % (Auto) (9.0-44.0) % [place] % (Auto) (0.0-8.0) % Eos % (Auto) (0.0-4.0) % Baso % (Auto) (0.0-2.0) % Neut # (Auto) (1.8-7.7) th/mm3 Lymph # (Auto) (1.0-4.8) th/mm3 [place] # (Auto) (0.0-0.9) th/mm3 Eos # (Auto) (0.0-0.4) th/mm3 Baso # (Auto) (0.0-0.2) th/mm3 WBC Differential Differential Comment Puncture Site Patient Temperature VBG pH (7.360-7.400) VBG pCO2 (44-48) mmHG VBG pO2 (35-40) mmHG VBG HCO3 (22-26) mmol/L VBG O2 Saturation (70-76) % VBG O2 Content (9.0-17.0) Vol % VBG Base Excess (-2-2) mmol/L VBG Carboxyhemoglobin (0-4) % VBG Methemoglobin (0-2) % Hemoglobin (12.0-16.0) G/DL Inspired O2 % Critical Value Sodium (136-145) meq/L Potassium (3.5-5.1) meq/L Chloride (98-107) meq/L Carbon Dioxide (21.0-32.0) meq/L Anion Gap (5-15) meq/L BUN (7-18) mg/dL Creatinine (0.50-1.00) mg/dL Estimated GFR (>89) mL/min POC Glucose 219 H 192 H 192 H (68-110) mg/dl Random Glucose (74-106) mg/dL Calcium (8.5-10.1) mg/dL Phosphorus (2.5-4.9) mg/dL Magnesium (1.5-2.5) mg/dL Total Bilirubin (0.2-1.0) mg/dL AST (15-37) U/L ALT (10-53) U/L Alkaline Phosphatase (45-117) U/L Total Protein (6.4-8.2) g/dL Albumin (3.4-5.0) g/dL Lipase (73-393) U/L Beta-Hydroxybutyric Acd (0.00-0.39) mmol/L Beta HCG, Quant (0-5) mIU/mL Urine Color (Yellw/Straw) Urine Clarity (Clear) Urine pH (5.0-8.5) Ur Specific [place] (1.002-1.035) Urine Protein (Neg-Trace) mg/dL Urine Glucose (UA) (Negative) mg/dL Urine Ketones (Negative) mg/dL Urine Occult Blood (Negative) Urine Nitrate (Negative) Urine Bilirubin (Negative) Urine Urobilinogen (Less than 2) mg/dL Ur Leukocyte Esterase (Negative) Urine RBC (0-3) /hpf Urine WBC (0-5) /hpf Hyaline Casts (0-3) /lpf Urine Mucus (Occasional) /lpf Micro UA Comment Ur Microscopic Review Urine Culture Comments Nasal Screen MRSA (PCR) (Negative) 12/02/17 12/02/17 12/02/17 Range/Units 03:02 04:04 05:07 WBC (4.0-11.0) th/mm3 RBC (4.00-5.30) mil/mm3 Hgb (11.6-15.3) gm/dL Hct (35.0-46.0) % MCV (80.0-100.0) fL MCH (27.0-34.0) pg MCHC (32.0-36.0) % RDW (11.6-17.2) % Plt Count (150-450) th/mm3 MPV (7.0-11.0) fL Neut % (Auto) (16.0-70.0) % Lymph % (Auto) (9.0-44.0) % [place] % (Auto) (0.0-8.0) % Eos % (Auto) (0.0-4.0) % Baso % (Auto) (0.0-2.0) % Neut # (Auto) (1.8-7.7) th/mm3 Lymph # (Auto) (1.0-4.8) th/mm3 [place] # (Auto) (0.0-0.9) th/mm3 Eos # (Auto) (0.0-0.4) th/mm3 Baso # (Auto) (0.0-0.2) th/mm3 WBC Differential Differential Comment Puncture Site Patient Temperature VBG pH (7.360-7.400) VBG pCO2 (44-48) mmHG VBG pO2 (35-40) mmHG VBG HCO3 (22-26) mmol/L VBG O2 Saturation (70-76) % VBG O2 Content (9.0-17.0) Vol % VBG Base Excess (-2-2) mmol/L VBG Carboxyhemoglobin (0-4) % VBG Methemoglobin (0-2) % Hemoglobin (12.0-16.0) G/DL Inspired O2 % Critical Value Sodium (136-145) meq/L Potassium (3.5-5.1) meq/L Chloride (98-107) meq/L Carbon Dioxide (21.0-32.0) meq/L Anion Gap (5-15) meq/L BUN (7-18) mg/dL Creatinine (0.50-1.00) mg/dL Estimated GFR (>89) mL/min POC Glucose 180 H 171 H 167 H (68-110) mg/dl Random Glucose (74-106) mg/dL Calcium (8.5-10.1) mg/dL Phosphorus (2.5-4.9) mg/dL Magnesium (1.5-2.5) mg/dL Total Bilirubin (0.2-1.0) mg/dL AST (15-37) U/L ALT (10-53) U/L Alkaline Phosphatase (45-117) U/L Total Protein (6.4-8.2) g/dL Albumin (3.4-5.0) g/dL Lipase (73-393) U/L Beta-Hydroxybutyric Acd (0.00-0.39) mmol/L Beta HCG, Quant (0-5) mIU/mL Urine Color (Yellw/Straw) Urine Clarity (Clear) Urine pH (5.0-8.5) Ur Specific [place] (1.002-1.035) Urine Protein (Neg-Trace) mg/dL Urine Glucose (UA) (Negative) mg/dL Urine Ketones (Negative) mg/dL Urine Occult Blood (Negative) Urine Nitrate (Negative) Urine Bilirubin (Negative) Urine Urobilinogen (Less than 2) mg/dL Ur Leukocyte Esterase (Negative) Urine RBC (0-3) /hpf Urine WBC (0-5) /hpf Hyaline Casts (0-3) /lpf Urine Mucus (Occasional) /lpf Micro UA Comment Ur Microscopic Review Urine Culture Comments Nasal Screen MRSA (PCR) (Negative) 12/02/17 12/02/17 12/02/17 Range/Units 05:08 06:06 07:05 WBC (4.0-11.0) th/mm3 RBC (4.00-5.30) mil/mm3 Hgb (11.6-15.3) gm/dL Hct (35.0-46.0) % MCV (80.0-100.0) fL MCH (27.0-34.0) pg MCHC (32.0-36.0) % RDW (11.6-17.2) % Plt Count (150-450) th/mm3 MPV (7.0-11.0) fL Neut % (Auto) (16.0-70.0) % Lymph % (Auto) (9.0-44.0) % [place] % (Auto) (0.0-8.0) % Eos % (Auto) (0.0-4.0) % Baso % (Auto) (0.0-2.0) % Neut # (Auto) (1.8-7.7) th/mm3 Lymph # (Auto) (1.0-4.8) th/mm3 [place] # (Auto) (0.0-0.9) th/mm3 Eos # (Auto) (0.0-0.4) th/mm3 Baso # (Auto) (0.0-0.2) th/mm3 WBC Differential Differential Comment Puncture Site Patient Temperature VBG pH (7.360-7.400) VBG pCO2 (44-48) mmHG VBG pO2 (35-40) mmHG VBG HCO3 (22-26) mmol/L VBG O2 Saturation (70-76) % VBG O2 Content (9.0-17.0) Vol % VBG Base Excess (-2-2) mmol/L VBG Carboxyhemoglobin (0-4) % VBG Methemoglobin (0-2) % Hemoglobin (12.0-16.0) G/DL Inspired O2 % Critical Value Sodium 139 (136-145) meq/L Potassium 3.9 (3.5-5.1) meq/L Chloride 108 H (98-107) meq/L Carbon Dioxide 17.3 L (21.0-32.0) meq/L Anion Gap 14 (5-15) meq/L BUN 4 L (7-18) mg/dL Creatinine 0.68 (0.50-1.00) mg/dL Estimated GFR Greater than 89 (>89) mL/min POC Glucose 171 H 173 H (68-110) mg/dl Random Glucose 171 H (74-106) mg/dL Calcium 8.0 L (8.5-10.1) mg/dL Phosphorus (2.5-4.9) mg/dL Magnesium (1.5-2.5) mg/dL Total Bilirubin (0.2-1.0) mg/dL AST (15-37) U/L ALT (10-53) U/L Alkaline Phosphatase (45-117) U/L Total Protein (6.4-8.2) g/dL Albumin (3.4-5.0) g/dL Lipase (73-393) U/L Beta-Hydroxybutyric Acd (0.00-0.39) mmol/L Beta HCG, Quant (0-5) mIU/mL Urine Color (Yellw/Straw) Urine Clarity (Clear) Urine pH (5.0-8.5) Ur Specific [place] (1.002-1.035) Urine Protein (Neg-Trace) mg/dL Urine Glucose (UA) (Negative) mg/dL Urine Ketones (Negative) mg/dL Urine Occult Blood (Negative) Urine Nitrate (Negative) Urine Bilirubin (Negative) Urine Urobilinogen (Less than 2) mg/dL Ur Leukocyte Esterase (Negative) Urine RBC (0-3) /hpf Urine WBC (0-5) /hpf Hyaline Casts (0-3) /lpf Urine Mucus (Occasional) /lpf Micro UA Comment Ur Microscopic Review Urine Culture Comments Nasal Screen MRSA (PCR) (Negative) Imaging Data Radiologist's impression: Chest X-Ray 12/01/17 00:00 CONCLUSION: No acute cardiopulmonary disease. Discharge Plan Discharge Disposition Patient Disposition: 30 Still Patient Discharge Details Diagnosis: DKA (diabetic ketoacidoses) Physicians Team ED Provider: Jarrett Hall Primary Care Provider: UNKNOWN, Attending Provider: Ki Gaspar Discharge Interventions Interventions: ED Discharge Assessment Last Done: 12/01/17 20:30 Vital Signs Last Done: 12/01/17 16:21 Status ED Status: Left Department Discharge Information Discharge Date/Time: 12/01/17 20:30
[2017-12-01] MEDS ORDERED: Acetaminophen 325 MG Tablet PO PRN (19:01)
[2017-12-01] MEDS ORDERED: Bisacodyl 10 MG Supp RECTAL PRN (19:01)
[2017-12-01] MEDS ORDERED: Morphine Inj 4 MG/ML Vial IV.PUSH PRN (19:01)
--- NOTE | 2017-12-01 19:04 | P.HPIM ---
History of Present Illness Primary Care Physician: UNKNOWN History of Present Illness: This is a 27-year-old female with a PMH of DM who presented to ER with complaints of nausea, vomiting and generalized fatigue x1 days. States she was feeling "puny" yesterday w/ cold-like symptoms, today had worsening fatigue and "feel as though I'm in DKA". Denies fever or chills. On arrival, BP 135/71, HR 120, O2 sat 97% on RA, Afebrile. WBC 13.5. CO2 8.6, Hgb 24. GFR 78. Serum BS 186. Beta hydroxy 7.26. UA negative. ABG with pH 7.23. Started on Insulin gtt in ER. On Novolin N 27u bid and Regular Insulin sliding scale, compliant w/ medications - Diagnosis (1) DKA (diabetic ketoacidoses) (2) Leukocytosis (3) Dehydration Review of Systems PAST FAMILY HISTORY: Reviewed. No h/o DM or CAD All other systems reviewed negative except as stated in HPI [facility] - History History Provided By: Patient - Medical History Medical History: Medical History (Last Updated 12/01/17 @ 16:44 by Brendan Paulson) Diabetes - Tobacco History Second Hand Smoke Exposure: No Tobacco Use In Past 30 Days: No Smoking Status: Never smoker - Alcohol History How Often Do You Have a Drink Containing Alcohol: 2 to 4 times a month - Substance Use History Substance History: No History of Abuse - Travel History Recent Travel in the [place] Within the Last 8 Weeks: No Recent Travel Out of the Country Within the Last 8 Weeks: No - Immunization History Tetanus Immunization: Unsure Hx Influenza Vaccine This Season: No Medications and Allergies Active Medications: Active Medications Chlorhexidine Gluconate (Chlorhexidine 2% Cloth) 3 pack TOPICAL DAILY@0400 LUCIA Stop: 12/07/17 03:59 Chlorhexidine Gluconate (Chlorhexidine 2% Cloth) 3 pack TOPICAL DAILY@0400 PRN PRN Reason: Extra cloth needed Stop: 12/07/17 03:59 Sodium Chloride (Ns Inj) 1,000 mls @ 0 mls/hr IV.SIG [facility]OLUS [facility] Dextrose/Sodium Chloride (D5w/Normal Saline Inj) 1,000 mls @ 200 mls/hr IV.CONT .Q5H LUCIA Insulin Human Regular 100 unit (/ Sodium Chloride) 100 mls @ 4 mls/hr IV.CONT TITRATE PRN; Protocol PRN Reason: See protocol Potassium Chloride (Kcl 20 Meq Premix Inj) 20 meq in 100 mls @ 100 mls/hr IV.SIG Q1H PRN PRN Reason: for K+ 4.5 to 5 Potassium Chloride (Kcl 20 Meq Premix Inj) 20 meq in 100 mls @ 50 mls/hr IV.SIG Q2H PRN PRN Reason: for K+ 4.5 to 5 Potassium Chloride (Kcl 20 Meq Premix Inj) 20 meq in 100 mls @ 100 mls/hr IV.SIG Q1H PRN PRN Reason: for K+ 3.5 to 4.4 Potassium Chloride (Kcl 20 Meq Premix Inj) 20 meq in 100 mls @ 50 mls/hr IV.SIG Q2H PRN PRN Reason: for K+ 3.5 to 4.4 Potassium Chloride (Kcl 20 Meq Premix Inj) 20 meq in 100 mls @ 50 mls/hr IV.SIG Q2H PRN PRN Reason: for Initial K+ ONLY < 3.5 Potassium Chloride (Kcl 20 Meq Premix Inj) 20 meq in 100 mls @ 50 mls/hr IV.SIG Q2H PRN PRN Reason: for Subsequent K+ < 3.5 Potassium Chloride (Kcl 40 Meq Premix Inj) 40 meq in 100 mls @ 50 mls/hr IV.SIG Q2H PRN PRN Reason: for Subsequent K+ < 3.5 Sodium Chloride (Ns Inj) 1,000 mls @ 250 mls/hr IV.CONT .Q4H LUCIA Sodium Phosphate 15 mmol/ (Sodium Chloride) 105 mls @ 25 mls/hr IV.SIG UNSCH PRN PRN Reason: for Phosphate Level < 1.0 Potassium Chloride (Kcl 40 Meq Premix Inj) 40 meq in 100 mls @ 100 mls/hr IV.SIG Q1H PRN PRN Reason: for Initial K+ ONLY < 3.5 Sodium Bicarbonate (Sodium Bicarbonate 8.4% Inj) 100 meq IV.PUSH UNSCH PRN PRN Reason: for pH less than 6.9 Sodium Bicarbonate (Sodium Bicarbonate 8.4% Inj) 50 meq IV.PUSH UNSCH PRN PRN Reason: for pH 6.9 to 7.0 Sodium Chloride (Ns Flush) 2 ml IV.FLUSH PRN PRN PRN Reason: FLUSH AFTER USING IV ACCESS Allergies Allergy/AdvReac Type Severity Reaction Status Date / Time No Known Allergies Allergy Unverified 07/14/17 05:53 Home Medications Medication Instructions Recorded Confirmed Type Novolin N NPH U-100 Insulin 12/01/17 12/01/17 History insulin regular human [Novolin R 12/01/17 History Regular U-100 Insuln] Exam Vital signs: Vital Signs 12/01/17 16:15 12/01/17 16:21 Temperature 97.3 F L 98.2 F Pulse Rate 120 H 105 H Respiratory Rate 30 H Blood Pressure 135/71 121/79 Pulse Oximetry 97 99 Intake & Output 12/01/17 12/01/17 12/02/17 06:59 18:59 06:59 Weight 81.739 kg Narrative: PE: GENERAL: Very pleasant young white female in no acute distress. SKIN: Focused skin assessment warm and dry. HEENT: PERRLA, EOMI. No scleral icterus or conjunctival pallor. No lid lag or facial droop. CARDIOVASCULAR: Regular rate and rhythm. No obvious murmurs to auscultation. No chest tenderness to palpation. RESPIRATORY: No obvious rhonchi or wheezing. Clear to auscultation. Breath sounds equal bilaterally. GASTROINTESTINAL: Abdomen soft, non-tender, nondistended. BS normal. MUSCULOSKELETAL: Extremities without clubbing, cyanosis, or edema. No obvious deformities. NEUROLOGICAL: Awake, alert and oriented x4. No focal neurologic deficits. Moving both upper and lower extremities spontaneously. PSYCHIATRIC: Appropriate mood and affect. Insight and judgment normal. Results - Labs CBC & Chem 7: 12/01/17 16:46 12/01/17 16:46 Labs: Short CBC 12/01/17 Range/Units 16:46 WBC 13.5 H (4.0-11.0) th/mm3 Hgb 14.9 (11.6-15.3) gm/dL Hct 45.2 (35.0-46.0) % Plt Count 297 (150-450) th/mm3 BMP 12/01/17 16:46 Sodium 134 L Potassium 4.2 Chloride 101 Carbon Dioxide 8.6 L BUN 9 Creatinine 0.88 Calcium 8.9 Liver Function 12/01/17 Range/Units 16:46 Total Bilirubin 0.2 (0.2-1.0) mg/dL AST 25 (15-37) U/L ALT 29 (10-53) U/L Alkaline Phosphatase 84 (45-117) U/L Albumin 4.3 (3.4-5.0) g/dL Urine 12/01/17 Range/Units 17:08 Urine Color Straw (Yellw/Straw) Urine Clarity Clear (Clear) Urine pH 5.0 (5.0-8.5) Ur Specific [place] 1.020 (1.002-1.035) Urine Protein 30 H (Neg-Trace) mg/dL Urine Glucose (UA) 500 or greater (Negative) mg/dL Caprini VTE Risk Assessment Caprini VTE Risk Assessment: No/Low Risk (score <= 1) Caprini Risk Assessment Model: Point Value = 1 Point Value = 2 Point Value = 3 Point Value = 5 Age 41-60 Minor surgery BMI > 25 kg/m2 Swollen legs Varicose veins or History of unexplained or recurrent spontaneous Oral contraceptives or hormone replacement Sepsis (< 1 month) Serious lung disease, including pneumonia (< 1 month) Abnormal pulmonary function Acute myocardial infarction Congestive heart failure (< 1 month) History of inflammatory bowel disease Medical patient at bed rest Age 61-74 Arthroscopic surgery Major open surgery (> 45 min) Laparoscopic surgery (> 45 min) Malignancy Confined to bed (> 72 hours) Immobilizing plaster cast Central venous access Age >= 75 History of VTE Family history of VTE Factor V Leiden Prothrombin [id number] Lupus anticoagulant Anticardiolipin antibodies Elevated serum homocysteine Heparin-induced thrombocytopenia Other congenital or acquired thrombophilia Stroke (< 1 month) Elective arthroplasty Hip, pelvis, or leg fracture Acute spinal cord injury (< 1 month) Prophylaxis Regimen: Total Risk Factor Score Risk Level Prophylaxis Regimen 0-1 Low Early ambulation 2 Moderate Order ONE of the following: *Sequential Compression Device (SCD) *Heparin 5000 units SQ BID 3-4 Higher Order ONE of the following medications: *Heparin 5000 units SQ TID *Enoxaparin/Lovenox 40 mg SQ daily (WT < 150 kg, CrCl > 30 mL/min) *Enoxaparin/Lovenox 30 mg SQ daily (WT < 150 kg, CrCl > 10-29 mL/min) *Enoxaparin/Lovenox 30 mg SQ BID (WT < 150 kg, CrCl > 30 mL/min) AND/OR *Sequential Compression Device (SCD) 5 or more Highest Order ONE of the following medications: *Heparin 5000 units SQ TID (Preferred with Epidurals) *Enoxaparin/Lovenox 40 mg SQ daily (WT < 150 kg, CrCl > 30 mL/min) *Enoxaparin/Lovenox 30 mg SQ daily (WT < 150 kg, CrCl > 10-29 mL/min) *Enoxaparin/Lovenox 30 mg SQ BID (WT < 150 kg, CrCl > 30 mL/min) AND *Sequential Compression Device (SCD) Assessment and Plan - Assessment (1) DKA (diabetic ketoacidoses) Code(s): E13.10 - Other specified diabetes mellitus with ketoacidosis without coma Status: Acute (2) Leukocytosis Code(s): D72.829 - Elevated white blood cell count, unspecified Status: Acute (3) Dehydration Code(s): E86.0 - Dehydration Status: Acute - Plan A/P: 1. DKA: Recurrent, CO2 8.6, AG 24, B-hydroxy 7.26, pH 7.23, BS 186, started on Insulin gtt, admit to ICU for continuation of DKA Protocol, repeat labs q6h, check Hgb A1c, NPO, IVF for hydration-D5 as BS <250, monitor accu-checks q1h. 2. Leukocytosis: WBC 13, afebrile, likely reactive from acute DKA, however reports recent cold-like symptoms/congestion. Check CXR to eval for possible underlying PNA. U/a negative for UTI. Repeat labs in am. 3. Dehydration: GFR 78, IVF for hydration, repeat labs in am, monitor I/O. 4. DVT Prophylaxis: SCD/Teds 5. Social work for d/c planning as needed 6. Case discussed w/ ER physician at length, labs/records/imaging reviewed by me.
[2017-12-01] MEDS: Dextrose 5%/NaCl 0.9% Inj 1,000 ML IV.CONT SCH (19:07)
[2017-12-01] MEDS: Potassium Chlor 20 mEq Premix 20 MEQ/100 ML PIGGYBACK IV.SIG PRN ×2 (19:51→21:55)
[2017-12-01 19:52] LABS: Lipase 55 U/L (73-393)
--- NOTE | 2017-12-01 20:04 | XR ---
EXAM DATE: 12/01/2017 8:00 PM EDT AGE/SEX: 27 years / Female INDICATIONS: Diabetic complications and shortness of breath. CLINICAL DATA: This is the patient's initial encounter. Patient reports that signs and symptoms have been present for 1 day and indicates a pain score of 0/10. MEDICAL/SURGICAL HISTORY: Diabetes. None. COMPARISON: [facility] [place], CHEST SINGLE AP, 07/14/2017. . FINDINGS: The lungs are clear without infiltrate, nodule, or mass. There is no appreciable pleural effusion for technique. Heart and mediastinum are unremarkable. CONCLUSION: No acute cardiopulmonary disease. Electronically signed by: Milton Bond MD 12/01/2017 8:03 PM EDT
[2017-12-01] MEDS ORDERED: Famotidine 20 MG Tablet PO SCH (21:00)
[2017-12-01] MEDS: Sod Chloride 0.9% Inj 1,000 ML IV.CONT SCH ×2 (21:13→22:58)
[2017-12-01] MEDS: Famotidine PF Inj 20 MG/2 ML Vial IV.PUSH SCH (21:14)
[2017-12-01] MEDS: Senna/Docusate Sodium 8.6/50 MG Tablet PO SCH (21:14)
[2017-12-02] MEDS: Dextrose 5%/NaCl 0.9% Inj 1,000 ML IV.CONT SCH ×4 (00:06→19:52)
[2017-12-02 01:33] LABS: Anion Gap 19 meq/L (5-15); Blood Urea Nitrogen 5 mg/dL (7-18); Calcium 8.1 mg/dL (8.5-10.1); Carbon Dioxide 11.8 meq/L (21.0-32.0); Chloride 105 meq/L (98-107); Glomerular Filtration Rate Greater Than 89 mL/min (>89); Glucose,Random 198 mg/dL (74-106); Magnesium 1.7 mg/dL (1.5-2.5); Phosphorus 2.4 mg/dL (2.5-4.9); Potassium 4.3 meq/L (3.5-5.1); Sodium 136 meq/L (136-145)
[2017-12-02] MEDS: Sod Chloride 0.9% Inj 1,000 ML IV.CONT SCH ×4 (03:31→22:31)
[2017-12-02] MEDS: Chlorhexidine Gluconate 2% 1 Pack (2 Cloths) TOPICAL SCH ×2 (03:32)
[2017-12-02] MEDS ORDERED: Chlorhexidine Gluconate 2% 1 Pack (2 Cloths) TOPICAL PRN ×2 (04:00)
[2017-12-02 05:45] LABS: Anion Gap 14 meq/L (5-15); Carbon Dioxide 17.3 meq/L (21.0-32.0); Chloride 108 meq/L (98-107); Glomerular Filtration Rate Greater Than 89 mL/min (>89); Glucose,Random 171 mg/dL (74-106); Potassium 3.9 meq/L (3.5-5.1); Sodium 139 meq/L (136-145)
[2017-12-02 05:59] LABS: Blood Urea Nitrogen 4 mg/dL (7-18)
--- NOTE | 2017-12-02 09:05 | P.PN ---
Subjective Interval history: Follow-up DKA December 02, 2017-patient seen and examined, denies any shortness of breath, abdominal pain, nausea or vomiting. States she is feeling much better since admission. Anion gap 13.7 Physical Exam Vital signs: Vital Signs 12/01/17 16:15 12/01/17 16:21 12/01/17 20:10 Temperature 97.3 F L 98.2 F Pulse Rate 120 H 105 H 105 H Respiratory Rate 30 H 24 Blood Pressure 135/71 121/79 147/63 H Pulse Oximetry 97 99 12/01/17 21:11 12/01/17 22:00 12/01/17 23:00 Temperature Pulse Rate 101 H 107 H 104 H Respiratory Rate 22 32 H 26 H Blood Pressure 120/56 L 119/63 Pulse Oximetry 100 100 100 12/02/17 00:00 12/02/17 01:00 12/02/17 02:00 Temperature 98.3 F Pulse Rate 99 H 94 H 96 H Respiratory Rate 17 22 21 Blood Pressure 116/57 L 119/56 L 119/59 L Pulse Oximetry 99 99 99 12/02/17 03:00 12/02/17 04:00 12/02/17 05:00 Temperature 98.3 F Pulse Rate 94 H 95 H 84 Respiratory Rate 19 17 18 Blood Pressure 116/59 L 114/67 108/58 L Pulse Oximetry 98 99 97 12/02/17 06:00 Temperature Pulse Rate 85 Respiratory Rate 16 Blood Pressure 115/59 L Pulse Oximetry 99 Intake & Output 12/01/17 12/02/17 12/02/17 18:59 06:59 18:59 Intake Total 3100 / 3100 Balance 3100 / 3100 Weight 81.739 kg 84.4 kg Intake: IV 3100 / 3100 D5W/Normal Saline Inj 1,000 ML 2000 / 2000 @ 200 mls/hr IV.CONT .Q5H LUCIA Rx#:[id number] KCl 20 mEq Premix Inj 20 meq In 100 / 100 100 ml @ 50 mls/hr IV.SIG Q2H PRN Rx#:[id number] NS Inj 1,000 ML @ Wide Open IV. 1000 / 1000 SIG BOLUS ONE Rx#:[id number] Oral 0 / 0 Other: # Voids 3 Weight On Admission 84.4 kg Narrative: GENERAL: NAD SKIN: Warm and dry. HEAD: Normocephalic. EYES: No scleral icterus. No injection or drainage. NECK: Supple, trachea midline. No JVD or lymphadenopathy. CARDIOVASCULAR: Regular rate and rhythm without murmurs, gallops, or rubs. RESPIRATORY: Breath sounds equal bilaterally. No accessory muscle use. GASTROINTESTINAL: Abdomen soft, non-tender, nondistended. MUSCULOSKELETAL: No cyanosis, or edema. BACK: Nontender without obvious deformity. No CVA tenderness. Results - Labs CBC & Chem 7: 12/01/17 16:46 12/02/17 05:08 Laboratory Results - last 24 hr 12/01/17 12/01/17 12/01/17 16:18 16:46 16:46 WBC 13.5 H RBC 5.06 Hgb 14.9 Hct 45.2 MCV 89.4 MCH 29.4 MCHC 32.9 RDW 12.6 Plt Count 297 MPV 9.6 Neut % (Auto) 92.0 H Lymph % (Auto) 6.1 L [place] % (Auto) 1.8 Eos % (Auto) 0.0 Baso % (Auto) 0.1 Neut # (Auto) 12.5 H Lymph # (Auto) 0.8 L [place] # (Auto) 0.2 Eos # (Auto) 0.0 Baso # (Auto) 0.0 WBC Differential . Differential Comment Auto diff final Puncture Site Patient Temperature VBG pH VBG pCO2 VBG pO2 VBG HCO3 VBG O2 Saturation VBG O2 Content VBG Base Excess VBG Carboxyhemoglobin VBG Methemoglobin Hemoglobin Inspired O2 Critical Value Sodium 134 L Potassium 4.2 Chloride 101 Carbon Dioxide 8.6 L Anion Gap 24 H BUN 9 Creatinine 0.88 Estimated GFR 78 L POC Glucose 176 H Random Glucose 186 H Calcium 8.9 Phosphorus Magnesium Total Bilirubin 0.2 AST 25 ALT 29 Alkaline Phosphatase 84 Total Protein 8.6 H Albumin 4.3 Lipase 55 L Beta-Hydroxybutyric Acd Beta HCG, Quant Less than 1 Urine Color Urine Clarity Urine pH Ur Specific [place] Urine Protein Urine Glucose (UA) Urine Ketones Urine Occult Blood Urine Nitrate Urine Bilirubin Urine Urobilinogen Ur Leukocyte Esterase Urine RBC Urine WBC Hyaline Casts Urine Mucus Micro UA Comment Ur Microscopic Review Urine Culture Comments Nasal Screen MRSA (PCR) 12/01/17 12/01/17 12/01/17 16:46 17:08 18:09 WBC RBC Hgb Hct MCV MCH MCHC RDW Plt Count MPV Neut % (Auto) Lymph % (Auto) [place] % (Auto) Eos % (Auto) Baso % (Auto) Neut # (Auto) Lymph # (Auto) [place] # (Auto) Eos # (Auto) Baso # (Auto) WBC Differential Differential Comment Puncture Site Line Patient Temperature 98.6 VBG pH 7.23 L* VBG pCO2 23 L VBG pO2 39 VBG HCO3 9 L* VBG O2 Saturation 66 L VBG O2 Content 13.2 VBG Base Excess -16.9 L VBG Carboxyhemoglobin 0.9 VBG Methemoglobin 1.1 Hemoglobin 14.3 Inspired O2 21 Critical Value Yes Sodium Potassium Chloride Carbon Dioxide Anion Gap BUN Creatinine Estimated GFR POC Glucose Random Glucose Calcium Phosphorus Magnesium Total Bilirubin AST ALT Alkaline Phosphatase Total Protein Albumin Lipase Beta-Hydroxybutyric Acd 7.26 H Beta HCG, Quant Urine Color Straw Urine Clarity Clear Urine pH 5.0 Ur Specific [place] 1.020 Urine Protein 30 H Urine Glucose (UA) 500 or greater Urine Ketones 80 or greater H Urine Occult Blood Negative Urine Nitrate Negative Urine Bilirubin Negative Urine Urobilinogen Less than 2 Ur Leukocyte Esterase Negative Urine RBC Less than 1 Urine WBC Less than 1 Hyaline Casts 1 Urine Mucus Few H Micro UA Comment Culture not ind Ur Microscopic Review Not Reportable Urine Culture Comments Culture not ind Nasal Screen MRSA (PCR) 12/01/17 12/01/17 12/01/17 21:00 21:00 21:33 WBC RBC Hgb Hct MCV MCH MCHC RDW Plt Count MPV Neut % (Auto) Lymph % (Auto) [place] % (Auto) Eos % (Auto) Baso % (Auto) Neut # (Auto) Lymph # (Auto) [place] # (Auto) Eos # (Auto) Baso # (Auto) WBC Differential Differential Comment Puncture Site Patient Temperature VBG pH VBG pCO2 VBG pO2 VBG HCO3 VBG O2 Saturation VBG O2 Content VBG Base Excess VBG Carboxyhemoglobin VBG Methemoglobin Hemoglobin Inspired O2 Critical Value Sodium Potassium Chloride Carbon Dioxide Anion Gap BUN Creatinine Estimated GFR POC Glucose 143 H 149 H Random Glucose Calcium Phosphorus Magnesium Total Bilirubin AST ALT Alkaline Phosphatase Total Protein Albumin Lipase Beta-Hydroxybutyric Acd Beta HCG, Quant Urine Color Urine Clarity Urine pH Ur Specific [place] Urine Protein Urine Glucose (UA) Urine Ketones Urine Occult Blood Urine Nitrate Urine Bilirubin Urine Urobilinogen Ur Leukocyte Esterase Urine RBC Urine WBC Hyaline Casts Urine Mucus Micro UA Comment Ur Microscopic Review Urine Culture Comments Nasal Screen MRSA (PCR) Not detected 12/01/17 12/01/17 12/01/17 22:03 23:02 23:09 WBC RBC Hgb Hct MCV MCH MCHC RDW Plt Count MPV Neut % (Auto) Lymph % (Auto) [place] % (Auto) Eos % (Auto) Baso % (Auto) Neut # (Auto) Lymph # (Auto) [place] # (Auto) Eos # (Auto) Baso # (Auto) WBC Differential Differential Comment Puncture Site Patient Temperature VBG pH VBG pCO2 VBG pO2 VBG HCO3 VBG O2 Saturation VBG O2 Content VBG Base Excess VBG Carboxyhemoglobin VBG Methemoglobin Hemoglobin Inspired O2 Critical Value Sodium 136 Potassium 4.3 Chloride 105 Carbon Dioxide 11.8 L Anion Gap 19 H BUN 5 L Creatinine 0.71 Estimated GFR Greater than 89 POC Glucose 171 H 203 H Random Glucose 198 H Calcium 8.1 L D Phosphorus 2.4 L Magnesium 1.7 Total Bilirubin AST ALT Alkaline Phosphatase Total Protein Albumin Lipase Beta-Hydroxybutyric Acd Beta HCG, Quant Urine Color Urine Clarity Urine pH Ur Specific [place] Urine Protein Urine Glucose (UA) Urine Ketones Urine Occult Blood Urine Nitrate Urine Bilirubin Urine Urobilinogen Ur Leukocyte Esterase Urine RBC Urine WBC Hyaline Casts Urine Mucus Micro UA Comment Ur Microscopic Review Urine Culture Comments Nasal Screen MRSA (PCR) 12/02/17 12/02/17 12/02/17 00:01 01:04 02:08 WBC RBC Hgb Hct MCV MCH MCHC RDW Plt Count MPV Neut % (Auto) Lymph % (Auto) [place] % (Auto) Eos % (Auto) Baso % (Auto) Neut # (Auto) Lymph # (Auto) [place] # (Auto) Eos # (Auto) Baso # (Auto) WBC Differential Differential Comment Puncture Site Patient Temperature VBG pH VBG pCO2 VBG pO2 VBG HCO3 VBG O2 Saturation VBG O2 Content VBG Base Excess VBG Carboxyhemoglobin VBG Methemoglobin Hemoglobin Inspired O2 Critical Value Sodium Potassium Chloride Carbon Dioxide Anion Gap BUN Creatinine Estimated GFR POC Glucose 219 H 192 H 192 H Random Glucose Calcium Phosphorus Magnesium Total Bilirubin AST ALT Alkaline Phosphatase Total Protein Albumin Lipase Beta-Hydroxybutyric Acd Beta HCG, Quant Urine Color Urine Clarity Urine pH Ur Specific [place] Urine Protein Urine Glucose (UA) Urine Ketones Urine Occult Blood Urine Nitrate Urine Bilirubin Urine Urobilinogen Ur Leukocyte Esterase Urine RBC Urine WBC Hyaline Casts Urine Mucus Micro UA Comment Ur Microscopic Review Urine Culture Comments Nasal Screen MRSA (PCR) 12/02/17 12/02/17 12/02/17 03:02 04:04 05:07 WBC RBC Hgb Hct MCV MCH MCHC RDW Plt Count MPV Neut % (Auto) Lymph % (Auto) [place] % (Auto) Eos % (Auto) Baso % (Auto) Neut # (Auto) Lymph # (Auto) [place] # (Auto) Eos # (Auto) Baso # (Auto) WBC Differential Differential Comment Puncture Site Patient Temperature VBG pH VBG pCO2 VBG pO2 VBG HCO3 VBG O2 Saturation VBG O2 Content VBG Base Excess VBG Carboxyhemoglobin VBG Methemoglobin Hemoglobin Inspired O2 Critical Value Sodium Potassium Chloride Carbon Dioxide Anion Gap BUN Creatinine Estimated GFR POC Glucose 180 H 171 H 167 H Random Glucose Calcium Phosphorus Magnesium Total Bilirubin AST ALT Alkaline Phosphatase Total Protein Albumin Lipase Beta-Hydroxybutyric Acd Beta HCG, Quant Urine Color Urine Clarity Urine pH Ur Specific [place] Urine Protein Urine Glucose (UA) Urine Ketones Urine Occult Blood Urine Nitrate Urine Bilirubin Urine Urobilinogen Ur Leukocyte Esterase Urine RBC Urine WBC Hyaline Casts Urine Mucus Micro UA Comment Ur Microscopic Review Urine Culture Comments Nasal Screen MRSA (PCR) 12/02/17 12/02/17 12/02/17 05:08 06:06 07:05 WBC RBC Hgb Hct MCV MCH MCHC RDW Plt Count MPV Neut % (Auto) Lymph % (Auto) [place] % (Auto) Eos % (Auto) Baso % (Auto) Neut # (Auto) Lymph # (Auto) [place] # (Auto) Eos # (Auto) Baso # (Auto) WBC Differential Differential Comment Puncture Site Patient Temperature VBG pH VBG pCO2 VBG pO2 VBG HCO3 VBG O2 Saturation VBG O2 Content VBG Base Excess VBG Carboxyhemoglobin VBG Methemoglobin Hemoglobin Inspired O2 Critical Value Sodium 139 Potassium 3.9 Chloride 108 H Carbon Dioxide 17.3 L Anion Gap 14 BUN 4 L Creatinine 0.68 Estimated GFR Greater than 89 POC Glucose 171 H 173 H Random Glucose 171 H Calcium 8.0 L Phosphorus Magnesium Total Bilirubin AST ALT Alkaline Phosphatase Total Protein Albumin Lipase Beta-Hydroxybutyric Acd Beta HCG, Quant Urine Color Urine Clarity Urine pH Ur Specific [place] Urine Protein Urine Glucose (UA) Urine Ketones Urine Occult Blood Urine Nitrate Urine Bilirubin Urine Urobilinogen Ur Leukocyte Esterase Urine RBC Urine WBC Hyaline Casts Urine Mucus Micro UA Comment Ur Microscopic Review Urine Culture Comments Nasal Screen MRSA (PCR) 12/02/17 08:18 WBC RBC Hgb Hct MCV MCH MCHC RDW Plt Count MPV Neut % (Auto) Lymph % (Auto) [place] % (Auto) Eos % (Auto) Baso % (Auto) Neut # (Auto) Lymph # (Auto) [place] # (Auto) Eos # (Auto) Baso # (Auto) WBC Differential Differential Comment Puncture Site Patient Temperature VBG pH VBG pCO2 VBG pO2 VBG HCO3 VBG O2 Saturation VBG O2 Content VBG Base Excess VBG Carboxyhemoglobin VBG Methemoglobin Hemoglobin Inspired O2 Critical Value Sodium Potassium Chloride Carbon Dioxide Anion Gap BUN Creatinine Estimated GFR POC Glucose 153 H Random Glucose Calcium Phosphorus Magnesium Total Bilirubin AST ALT Alkaline Phosphatase Total Protein Albumin Lipase Beta-Hydroxybutyric Acd Beta HCG, Quant Urine Color Urine Clarity Urine pH Ur Specific [place] Urine Protein Urine Glucose (UA) Urine Ketones Urine Occult Blood Urine Nitrate Urine Bilirubin Urine Urobilinogen Ur Leukocyte Esterase Urine RBC Urine WBC Hyaline Casts Urine Mucus Micro UA Comment Ur Microscopic Review Urine Culture Comments Nasal Screen MRSA (PCR) - Imaging Impressions Chest X-Ray 12/01/17 00:00 CONCLUSION: No acute cardiopulmonary disease. Assessment and Plan - Assessment (1) DKA (diabetic ketoacidoses) Code(s): E13.10 - Other specified diabetes mellitus with ketoacidosis without coma Status: Acute (2) Leukocytosis Code(s): D72.829 - Elevated white blood cell count, unspecified Status: Acute (3) Dehydration Code(s): E86.0 - Dehydration Status: Acute - Plan 27-year-old female with 1. DKA: Anion gap 13.7. Currently on Insulin gtt continue treatment per DKA Protocol. NPO, IVF for hydration-D5 as BS <250, monitor accu-checks q1h. repeat BMP now 2. Leukocytosis: Likely stress reactive. Chest x-ray without any cardiac pulmonary disease 3. Dehydration: Continue IV fluid hydration 4. DVT Prophylaxis: SCD/Teds
[2017-12-02 10:56] LABS: Anion Gap 13 meq/L (5-15); Blood Urea Nitrogen 3 mg/dL (7-18); Calcium 8.3 mg/dL (8.5-10.1); Carbon Dioxide 16.3 meq/L (21.0-32.0); Chloride 108 meq/L (98-107); Glomerular Filtration Rate Greater Than 89 mL/min (>89); Glucose,Random 197 mg/dL (74-106); Potassium 4.5 meq/L (3.5-5.1); Sodium 137 meq/L (136-145)
[2017-12-02 13:00] LABS: Hemoglobin A1c 8.9 % (4.3-6.0)
[2017-12-02] MEDS ORDERED: Dextrose 50% in Water 50 ML Vial IV.PUSH PRN (14:37)
[2017-12-02] MEDS: Senna/Docusate Sodium 8.6/50 MG Tablet PO SCH ×2 (15:10→22:30)
[2017-12-02] MEDS: Famotidine PF Inj 20 MG/2 ML Vial IV.PUSH SCH ×2 (15:10→22:30)
[2017-12-02 15:56] LABS: Anion Gap 14 meq/L (5-15); Blood Urea Nitrogen 3 mg/dL (7-18); Calcium 8.3 mg/dL (8.5-10.1); Chloride 108 meq/L (98-107); Glomerular Filtration Rate Greater Than 89 mL/min (>89); Glucose,Random 212 mg/dL (74-106); Potassium 3.9 meq/L (3.5-5.1); Sodium 141 meq/L (136-145)
[2017-12-02] MEDS: Insulin NovoLOG Aspart Correctional Sugar Inj SQ SCH (20:18)
[2017-12-02] MEDS ORDERED: Insulin Detemir Inj 1,000 UNIT/10 ML Vial SQ SCH ×2 (21:00)
[2017-12-02 21:15] LABS: Anion Gap 8 meq/L (5-15); Blood Urea Nitrogen 3 mg/dL (7-18); Calcium 8.3 mg/dL (8.5-10.1); Carbon Dioxide 20.7 meq/L (21.0-32.0); Chloride 111 meq/L (98-107); Glomerular Filtration Rate Greater Than 89 mL/min (>89); Glucose,Random 183 mg/dL (74-106); Potassium 3.4 meq/L (3.5-5.1); Sodium 140 meq/L (136-145)
[2017-12-02] MEDS ORDERED: Potassium Chloride 25 MEQ Effervescent Tablet PO ONE (21:35)
[2017-12-03] MEDS: Dextrose 5%/NaCl 0.9% Inj 1,000 ML IV.CONT SCH ×2 (01:00→05:00)
[2017-12-03] MEDS: Chlorhexidine Gluconate 2% 1 Pack (2 Cloths) TOPICAL SCH ×2 (04:59→05:00)
[2017-12-03] MEDS: Sod Chloride 0.9% Inj 1,000 ML IV.CONT SCH ×2 (04:59→06:17)
[2017-12-03 07:43] LABS: Alanine Aminotransferase 39 U/L (10-53); Albumin 3.3 g/dL (3.4-5.0); Alkaline Phosphatase 66 U/L (45-117); Anion Gap 10 meq/L (5-15); Aspartate Aminotransferase 41 U/L (15-37); Blood Urea Nitrogen 6 mg/dL (7-18); Calcium 8.9 mg/dL (8.5-10.1); Carbon Dioxide 23.2 meq/L (21.0-32.0); Chloride 106 meq/L (98-107); Glomerular Filtration Rate Greater Than 89 mL/min (>89); Glucose,Random 241 mg/dL (74-106); Potassium 3.8 meq/L (3.5-5.1); Sodium 139 meq/L (136-145); Total Protein 6.6 g/dL (6.4-8.2)
[2017-12-03] MEDS: Famotidine PF Inj 20 MG/2 ML Vial IV.PUSH SCH (09:01)
[2017-12-03] MEDS: Senna/Docusate Sodium 8.6/50 MG Tablet PO SCH (09:02)
--- NOTE | 2017-12-03 09:12 | P.DS ---
Date of admission: 12/01/17 18:53 Primary care physician: UNKNOWN Brief History from admission: This is a 27-year-old female with a PMH of DM who presented to ER with complaints of nausea, vomiting and generalized fatigue x1 days. States she was feeling "puny" yesterday w/ cold-like symptoms, today had worsening fatigue and "feel as though I'm in DKA". Denies fever or chills. On arrival, BP 135/71, HR 120, O2 sat 97% on RA, Afebrile. WBC 13.5. CO2 8.6, Hgb 24. GFR 78. Serum BS 186. Beta hydroxy 7.26. UA negative. ABG with pH 7.23. Started on Insulin gtt in ER. On Novolin N 27u bid and Regular Insulin sliding scale, compliant w/ medications DS: Summary Hospital Course: Mrs. Garcia is a 27-year-old female. She was admitted secondary to DKA. Blood sugars were treated initially with insulin drip and then with with long- acting insulins and an insulin sliding scale. Anion gap has closed. Electrolyte disturbances have been maintained and corrected. This morning patient is at baseline. Blood sugars are slightly elevated and adjustment of her baseline long-acting insulins as discussed. She is to start at 27 of NPH twice daily and increase at 30 troll is not present. At this point she is medically stable and cleared for discharge home. - Time Spent with Patient Total time spent providing and/or coordinating discharge services: Less than 30 minutes - Quality: VTE Deep Vein Thrombosis/Pulmonary Embolism Present on Admission: No Exam Vital signs: Vital Signs 12/02/17 10:00 12/02/17 11:00 12/02/17 12:00 Temperature 98.1 F Pulse Rate 81 74 77 Respiratory Rate 23 17 15 Blood Pressure 112/58 L 111/63 110/70 Pulse Oximetry 99 100 100 12/02/17 13:00 12/02/17 14:00 12/02/17 15:00 Temperature Pulse Rate 77 66 57 L Respiratory Rate 19 18 23 Blood Pressure 113/65 116/64 113/56 L Pulse Oximetry 100 99 98 12/02/17 16:00 12/02/17 17:00 12/02/17 18:00 Temperature 97.9 F Pulse Rate 79 86 77 Respiratory Rate 22 20 19 Blood Pressure 112/61 118/61 113/58 L Pulse Oximetry 99 97 100 12/02/17 19:00 12/02/17 19:01 12/02/17 20:00 Temperature 98.1 F Pulse Rate 76 92 H 77 Respiratory Rate 21 19 Blood Pressure 123/66 120/69 Pulse Oximetry 100 100 12/02/17 21:00 12/02/17 22:00 12/02/17 22:12 Temperature Pulse Rate 80 84 89 Respiratory Rate 23 21 30 H Blood Pressure 133/82 136/78 Pulse Oximetry 100 99 100 12/02/17 23:00 12/03/17 00:00 12/03/17 01:00 Temperature 98.3 F Pulse Rate 93 H 85 97 H Respiratory Rate 44 H 16 Blood Pressure Pulse Oximetry 98 97 12/03/17 02:00 12/03/17 03:00 12/03/17 04:00 Temperature 98.5 F Pulse Rate 68 74 69 Respiratory Rate 19 17 21 Blood Pressure Pulse Oximetry 97 97 97 12/03/17 05:00 12/03/17 06:00 Temperature Pulse Rate 71 67 Respiratory Rate 21 16 Blood Pressure Pulse Oximetry 98 98 Intake & Output 12/02/17 12/03/17 12/03/17 18:59 06:59 18:59 Intake Total 1999 1755 / 1755 Balance 1999 1755 / 1755 Weight 84.4 kg Intake: IV 1999 1355 / 1355 D5W/Normal Saline Inj 1,000 ML 1999 1170 / 1170 @ 200 mls/hr IV.CONT .Q5H LUCIA Rx#:[id number] NovoLIN R (IV Infusion) 100 85 / 85 UNIT In NS Inj 99 ML @ 4 UNITS/ HR 4 mls/hr IV.CONT TITRATE PRN Rx#:[id number] KCl 20 mEq Premix Inj 20 meq In 100 / 100 100 ml @ 50 mls/hr IV.SIG Q2H PRN Rx#:[id number] Oral 0 / 0 400 / 400 Other: # Voids 3 4 Results Procedures completed during hospitalization: none Labs on day of discharge: Labs from last 24 hours 12/03/17 12/03/17 12/03/17 09:00 06:52 04:32 Sodium 139 Potassium 3.8 Chloride 106 Carbon Dioxide 23.2 Anion Gap 10 BUN 6 L Creatinine 0.70 Estimated GFR Greater than 89 POC Glucose 245 H 213 H Random Glucose 241 H Hemoglobin A1c Calcium 8.9 Total Bilirubin 0.5 AST 41 H ALT 39 Alkaline Phosphatase 66 Total Protein 6.6 D Albumin 3.3 L D 12/03/17 12/03/17 12/02/17 04:14 00:10 22:37 Sodium Potassium Chloride Carbon Dioxide Anion Gap BUN Creatinine Estimated GFR POC Glucose 228 H 267 H 231 H Random Glucose Hemoglobin A1c Calcium Total Bilirubin AST ALT Alkaline Phosphatase Total Protein Albumin 12/02/17 12/02/17 12/02/17 21:15 20:31 20:10 Sodium 140 Potassium 3.4 L Chloride 111 H Carbon Dioxide 20.7 L Anion Gap 8 BUN 3 L Creatinine 0.66 Estimated GFR Greater than 89 POC Glucose 180 H 202 H Random Glucose 183 H Hemoglobin A1c Calcium 8.3 L Total Bilirubin AST ALT Alkaline Phosphatase Total Protein Albumin 12/02/17 12/02/17 12/02/17 19:07 18:27 17:16 Sodium Potassium Chloride Carbon Dioxide Anion Gap BUN Creatinine Estimated GFR POC Glucose 185 H 216 H 246 H Random Glucose Hemoglobin A1c Calcium Total Bilirubin AST ALT Alkaline Phosphatase Total Protein Albumin 12/02/17 12/02/17 12/02/17 16:00 15:05 14:57 Sodium 141 Potassium 3.9 Chloride 108 H Carbon Dioxide 19.0 L Anion Gap 14 BUN 3 L Creatinine 0.71 Estimated GFR Greater than 89 POC Glucose 218 H 190 H Random Glucose 212 H Hemoglobin A1c Calcium 8.3 L Total Bilirubin AST ALT Alkaline Phosphatase Total Protein Albumin 12/02/17 12/02/17 12/02/17 13:48 12:47 11:43 Sodium Potassium Chloride Carbon Dioxide Anion Gap BUN Creatinine Estimated GFR POC Glucose 159 H 157 H 163 H Random Glucose Hemoglobin A1c Calcium Total Bilirubin AST ALT Alkaline Phosphatase Total Protein Albumin 12/02/17 12/02/17 12/02/17 10:44 09:58 09:29 Sodium 137 Potassium 4.5 Chloride 108 H Carbon Dioxide 16.3 L Anion Gap 13 BUN 3 L Creatinine 0.70 Estimated GFR Greater than 89 POC Glucose 175 H 179 H Random Glucose 197 H Hemoglobin A1c Calcium 8.3 L Total Bilirubin AST ALT Alkaline Phosphatase Total Protein Albumin 12/01/17 16:46 Sodium Potassium Chloride Carbon Dioxide Anion Gap BUN Creatinine Estimated GFR POC Glucose Random Glucose Hemoglobin A1c 8.9 H Calcium Total Bilirubin AST ALT Alkaline Phosphatase Total Protein Albumin - Impressions ITS Impressions Chest X-Ray 12/01/17 00:00 CONCLUSION: No acute cardiopulmonary disease. Discharge Plan - Discharge Disposition Patient Disposition: 01 Discharge Home - Discharge Condition Condition: Stable - Discharge Order Discharge Orders: Discharge Order (Routine); Ordered 12/03/17 Ordered By: Randy Perez - Discharge Details Anticipated Discharge Date: 12/03/17 - Physicians Team Primary Care Provider: UNKNOWN, Attending Provider: Randy Perez
[2017-12-03] MEDS: Insulin NovoLOG Aspart Correctional Sugar Inj SQ SCH (09:13)
[2017-12-03 09:38] VITALS: TEMP 98.3
[2017-12-03 09:48] VITALS: BP 125/67
[2017-12-03 10:31] VITALS: PULSE 83; RESP 29; O2SAT 99
== END 2017-12-03 10:48 | disposition home or self-care (01) ==
LOC: NEPC 16:03 → NEDA 18:53 → HIMC 20:35
PROVIDERS: ADMIT Hospitalist; ATTEND Hospitalist